=== PATIENT | male | born 1960 | race African-American/Black ===

== ENCOUNTER 2019-08-05 10:09 | Inpatient (IN) | payer OTHER ==
--- NOTE | 2019-08-05 10:23 | PDOC ---
History of Present Illness - General Chief Complaint: Pain, Acute Stated Complaint: rib pain Time Seen by Provider: 08/05/19 10:21 History Source: Patient Exam Limitations: No Limitations - History of Present Illness Initial Comments: 08/05/19 10:22 Saray Comer is a 59M who denies PMH presenting with one week of R-sided rib pain. Reports 11/14 R-sided rib pain that started suddenly, was sleeping and woke up with R-sided pain suddenly, took Tylenol which did not help. Denies any recent trauma or muscle strain, denies chest pain or palpitations or prior cardiac history. Pain worse with inspiration. Denies nausea/vomiting, abdominal pain, pain with meals, dizziness, PITTS, weakness. Denies flank pain or urinary sx. Yesterday evaluated at [facility], found to have isolated CK 709, CTA did not show rib fracture, AAA, or PE, discharged home. Also found to be hypertensive to SBP 180s, given labetalol and hydralazine. Denies PMH HTN. Back today for continuation of same pain and further evaluation, has been trying to reach PMD Kate but unable to contact. PSH chest tube for atelectasis 40 years ago NKDA Denies smoking, social alcohol use, denies drug use. Past History - Medical History Allergies/Adverse Reactions: Allergies Allergy/AdvReac Type Severity Reaction Status Date / Time No Known Allergies Allergy Verified 08/05/19 10:14 COPD: No - Surgical History Appendectomy: No Gastric Stapling: No GI Surgery: No - Immunization History Immunization Up to Date: No - Psycho-Social/Smoking History Smoking History: Never smoked - Substance Abuse Hx (Audit-C & DAST Scrn) How often the patient has a drink containing alcohol: Monthly or less How often the patient has six or more drinks on one occasion: Less than monthly Score: In Men: 4 or > Positive; In Women: 3 or > Positive: 2 Screen Result (Pos requires Nsg. Audit-10AR): Negative In the last yr the pt used illegal drug/Rx for NonMed reason: No Score: Yes response is considered Positive: 0 Screen Result (Positive result requires Nsg. DAST-10): Negative Review of Systems - Review of Systems Able to Perform ROS?: Yes Constitutional: No: Chills, Fever, Loss of Appetite, Weakness, Weight Stable HEENTM: No: Symptoms Reported Respiratory: No: Cough, Shortness of Breath, SOB with Exertion, SOB at Rest Cardiac (ROS): Yes: Chest Pain. No: Edema, Lightheadedness, Palpitations, S yncope ABD/GI: Yes: Poor Appetite, Poor Fluid Intake. No: Nausea, Vomiting : No: Symptoms Reported Musculoskeletal: No: Symptoms Reported Integumentary: No: Bruising, Lesions, Lumps, Pruritus, Rash Neurological: No: Headache, Numbness, Paresthesia, Unsteady Gait Endocrine: No: Symptoms Reported Hematologic/Lymphatic: No: Symptoms Reported All Other Systems: Reviewed and Negative *Physical Exam - Vital Signs Last Vital Signs Temp Pulse Resp BP Pulse Ox 97.6 F 95 H 18 195/117 H 97 08/05/19 10:15 08/05/19 10:15 08/05/19 10:15 08/05/19 10:15 08/05/19 10:15 - Physical Exam General Appearance: Yes: Nourished, Appropriately Dressed. No: Apparent Distress HEENT: positive: EOMI, GREYSON, Normal Voice, Symmetrical, Pharynx Normal, Hearing Grossly Normal. negative: Scleral Icterus (R), Scleral Icterus (L), Pharyngeal Erythema, Tonsillar Exudate, Tonsillar Erythema Neck: positive: Trachea midline, Supple. negative: Tender, Rigid, Lymphadenopathy (R), Lymphadenopathy (L), Tender lateral, Tender midline, Thyromegaly Respiratory/Chest: positive: Chest Tender (R side costal margin), Lungs Clear, Normal Breath Sounds. negative: Respiratory Distress, Accessory Muscle Use, Labored Respiration, Decreased Breath Sounds, Crackles, Rales, Rhonchi, Stridor, Wheezing, Plerual Rub Cardiovascular: positive: Regular Rhythm, Regular Rate Gastrointestinal/Abdominal: positive: Normal Bowel Sounds, Tender (RUQ + Hamlin), Soft. negative: Organomegaly, Pulsatile Mass, Guarding, Rebound Musculoskeletal: positive: Normal Inspection. negative: CVA Tenderness, Decreased Range of Motion, Vertebral Tenderness Extremity: positive: Normal Capillary Refill, Normal Inspection, Normal Range of Motion, Pelvis Stable. negative: Tender, Pedal Edema, Swelling, Calf Tenderness Integumentary: positive: Normal Color, Dry, Warm, Other (R chest and back free of rash/lesions, RUE has discoloration to posterior forearm). negative: Rash Neurologic: positive: combine operator II-XII NML intact, Fully Oriented, Alert, Normal Mood/Affect, Normal Response, Motor Strength 06/09 ED Treatment Course - LABORATORY CBC & Chemistry Diagram: 08/05/19 10:58 08/05/19 10:58 Medical Decision Making - Medical Decision Making 08/05/19 12:01 Patient presents with non-specific R rib pain, already evaluated for PE and AAA via CTA and found to be negative, found to have RUQ pain and +Hamlin sign. VS show HTN. Evaluating broadly for cardiac and MSK pathologies with repeat CXR, CBC, CMP, CP, ECG, giving Ofirmev for pain control, labetalol for HTN, and RUQ US for evaluation GB pathology. ECG shows NSR with LVH, HR 93, MO 156, QRS 94, QTc 445, no SWETHA or ischemic changes. Labs remarkable for: - WBC 15.5 - CK 694 - CP WNL 08/05/19 14:01 RUQ US notable for cholelithiasis without evidence of cholecystitis. Getting CTAP with IV contrast to further evaluate. Pending UA to evaluate for renal pathology. 08/05/19 17:44 UA remarkable. Still in pain, gave Toradol without improvement. Pending CTAP read. 08/05/19 19:02 CTAP shows no acute cholecystitis but has right posterior basilar subpleural opacity. shirring tender on exam. Dr. Love evaluated in ED, if patient still has pain will accept admission. Patient agrees with assessment. 08/05/19 19:35. Discussed case with sheridan Benitez for admission to Med Surg under Dr. Joseph. Discharge - Discharge Information Problems reviewed: Yes Clinical Impression/Diagnosis: Biliary colic Chest pain Qualifiers: Chest pain type: unspecified Qualified Code(s): R07.9 - Chest pain, unspecified Condition: Stable - Follow up/Referral Referrals: Jose Love MD [Primary Care Provider] - - Patient Discharge Instructions Additional Instructions: Today you were evaluated for rib pain. If you have worsening chest pain, abdominal pain, nausea, vomiting, or any other new or concerning symptoms, please return to the emergency room. - Post Discharge Activity
[2019-08-05] MEDS ORDERED: ACETAMINOPHEN 1000 MG/100 ML VIAL (NON FORMULARY) IVPB ONE (10:57)
[2019-08-05] MEDS ORDERED: LABETALOL HCL 5 MG/1 ML (100MG/20 ML VIAL) IVPUSH ONE (11:02)
[2019-08-05] MEDS ORDERED: LABETALOL HCL 5 MG/1 ML (200MG/40ML VIAL) IVPB ONE (11:27)
[2019-08-05] MEDS ORDERED: ACETAMINOPHEN INJECTION 100 ML IVPB ONE (11:27)
[2019-08-05 11:41] LABS: BASO % 0.1 % (0-2.0); HEMATOCRIT 38.6 % (35.4-49); HEMOGLOBIN 12.8 GM/dL (11.7-16.9); MCH 32.6 pg (25.7-33.7); MCHC 33.1 g/dl (32.0-35.9); MEAN CELL VOLUME 98.8 fl (80-96); MEAN PLT VOLUME 9.7 fl (7.5-11.1); MONO % 6.2 % (3.8-10.2); NEUT % 88.7 % (42.8-82.8); PLATELET COUNT 296 K/MM3 (134-434); RBC 3.91 M/mm3 (4.00-5.60); RDW 12.9 % (11.9-15.9); WHITE BLOOD COUNT 15.5 K/mm3 (4.0-10.0)
--- NOTE | 2019-08-05 12:19 | PDOC ---
Attending Attestation - Resident Resident Name: LioseferinoTeresaGerman - ED Attending Attestation I have performed the following: I have examined & evaluated the patient, The case was reviewed & discussed with the resident, I agree w/resident's findings & plan - HPI HPI: 08/05/19 12:15 59y/o M with no sig pmh p/w 2d RUQ/R flank pain. seen at [facility] yesterday, labs/cta chest/ekg all wnl so discharged home with motrin. presents today for persistent sharp pain to RUQ area, associated with nausea and one episode of vomiting today, no diarrhea. worse with deep inspiration, no cp/sob/palp. no f/c. no h/o exertional cp, no h/o postprandial pain. - Physicial Exam PE: 08/05/19 12:17 elevated bp, afebrile, o2 sat wnl alert, seated in stretcher, conversant no jaundice/pallor s1s2 rrr, ctab soft/nd. tender with guarding RUQ, also tender R flank POCUS reveals normal sized GB with polyp v stone no edema, no rash - Medical Decision Making 08/05/19 12:32 59y/o M with 2 days RUQ/flank pain, focal guarding could be consistent with biliary colic/cholecystitis, r/o renal etiology, cardiac/pulm less likely particularly given normal CTA yesterday. elevated BP, ? response to pain, but r/o renal infarct if no other etiology. labs, ua ekg, cxr ruq u/s reassess, likely admission Heart Score/ECG Review #1 ECG reviewed & interpreted by me at: 10:48 General ECG Interpretation: Sinus Rhythm, Normal Rate (93), Normal Intervals (qtc 445, + LVH), No acute ischemic changes (TWI V5V6 could be consistent with strain pattern) Discharge - Discharge Information Problems reviewed: Yes Clinical Impression/Diagnosis: Biliary colic Chest pain Qualifiers: Chest pain type: unspecified Qualified Code(s): R07.9 - Chest pain, unspecified Condition: Stable Disposition: VNS/HOME HEALTH CARE - Follow up/Referral - Patient Discharge Instructions - Post Discharge Activity
--- NOTE | 2019-08-05 12:27 | EKG ---
Test Reason : Blood Pressure : / mmHG Vent. Rate : 093 BPM Atrial Rate : 093 BPM P-R Int : 156 ms QRS Dur : 094 ms QT Int : 358 ms P-R-T Axes : 039 -23 239 degrees QTc Int : 445 ms POOR DATA QUALITY, INTERPRETATION MAY BE ADVERSELY AFFECTED NORMAL SINUS RHYTHM POSSIBLE LEFT ATRIAL ENLARGEMENT LEFT VENTRICULAR HYPERTROPHY ABNORMAL ECG NO PREVIOUS ECGS AVAILABLE Confirmed by Jorden Galvez MD ([id number]) on 08/05/2019 12:26:52 PM Referred By: Confirmed By:Jorden Galvez MD
[2019-08-05 12:29] LABS: ALBUMIN 4.2 g/dl (3.4-5.0); ALK PHOS 67 U/L (45-117); ANION GAP 7 MMOL/L (8-16); BILIRUBIN,TOTAL 0.6 mg/dL (0.2-1); CALCIUM 9.6 mg/dL (8.5-10.1); CHLORIDE 101 mmol/L (98-107); CO2 29 mmol/L (21-32); CREATININE 1.1 mg/dL (0.55-1.3); GLUCOSE,RANDOM 120 mg/dL (74-106); POTASSIUM 3.8 mmol/L (3.5-5.1); SGOT/AST 33 U/L (15-37); SODIUM 137 mmol/L (136-145); TOT PROT 8.8 g/dl (6.4-8.2)
[2019-08-05 12:32] LABS: SGPT/ALT 29 U/L (13-61)
[2019-08-05 13:46] LABS: LIPASE 85 U/L (73-393)
[2019-08-05 15:11] LABS: URINE APPEARANCE TURBID; URINE BILIRUBIN NEGATIVE (NEGATIVE); URINE COLOR DK YELLOW; URINE GLUCOSE (UA) NEGATIVE (NEGATIVE); URINE KETONE NEGATIVE (NEGATIVE)
[2019-08-05 15:12] LABS: PH,URINE 5.5 (5.0-8.0); URINE LEUK ESTERASE NEGATIVE (NEGATIVE); URINE NITRITE NEGATIVE (NEGATIVE); URINE PROTEIN TRACE (NEGATIVE)
[2019-08-05 15:13] LABS: EPI CELLS 9.5 /uL (0-25.1); HYALINE CASTS 2.18 /uL (0-3.1); URINE BACTERIA 8.6 /uL (0-1359); URINE RBC 3.4 /uL (0-23.9); URINE WBC 3.8 /uL (0-25.8)
[2019-08-05] MEDS ORDERED: SODIUM CHLORIDE 0.9% 500 ML INFUS.BAG IV ONE (16:48)
[2019-08-05] MEDS ORDERED: KETOROLAC TROMETHAMINE 30 MG/1 ML VIAL IVPUSH ONE (16:48)
[2019-08-05] MEDS ORDERED: KETOROLAC TROMETHAMINE 30 MG/1 ML VIAL ONE (16:59)
[2019-08-05] MEDS ORDERED: SODIUM CHLORIDE 1,000 ML IV SCH (19:30)
--- NOTE | 2019-08-05 19:41 | HP ---
CHIEF COMPLAINT:right upper quadrant pain PCP:Dr. Metcalf HISTORY OF PRESENT ILLNESS: 59 year old male with no past medical or cardiac hostory history who presented with right sided rib pain. He reported 10/10 right sided rib pain that started yesterday suddenly, he states he was sleeping and woke up with mid right sided pain with radiation to his back, took Tylenol which did not relieve his pain. He denied any recent trauma or muscle strain, denied chest pain or palpitations or prior cardiac history. Pain was described as worse with inspiration and on positional changes. He denied nausea, abdominal pain with meals, dizziness, headache, weakness, or urinary symptoms. Yesterday he was evaluated at [facility] ER , found to have isolated CK 709, CTA did not show rib fracture, AAA, or PE, and he was discharged home. He was also found to be found to be hypertensive with SBP 180s, was given IV labetalol and hydralazine. He came to [facility] ER today for continuation of same pain and further evaluation. ER workup notable for: 1.CT scan of abdomen and pelvis with contrast demonstrating cholelithiasis and no evidence of acute cholecystitis or acute appendicitis, no aortic aneurysm or other acute findings, no lymphadenopathy, a small amount of free intraperitoneal fluid seen in rectovesical space, right posterior basilar subpleural opacity present. 2. Abdomen US- mild hepatomegaly and cholelithiasis. 3. CXR with moderate cardiomegaly. 4. Lab findings notable for WBC 15.5 and creatine kinase 654, ast 33, alt 29, total bilirubin 0.6 and creatinine 1.1. 5. UA is negative. In the ER he was hypertensive with SBP in the 190's ? pain response. He receive d IV labatalol 20mg bolus once with some improvement in blood pressure. He was also given IV toradol 30 mg once with some relief in pain and a bolus of IVF. Recent Travel: no PAST MEDICAL HISTORY: none PAST SURGICAL HISTORY: chest tube for atelectasis 40 years ago Social History: Smoking:no Alcohol:no Drugs: no Family History: + diabetes mellitus in family Allergies No Known Allergies Allergy (Verified 08/05/19 10:14) HOME MEDICATIONS: none REVIEW OF SYSTEMS CONSTITUTIONAL: Absent: fever, chills, diaphoresis, generalized weakness, malaise, loss of juan etite, weight change HEENT: Absent: rhinorrhea, nasal congestion, throat pain, throat swelling, difficulty swallowing, mouth swelling, ear pain, eye pain, visual changes CARDIOVASCULAR: Absent: chest pain, syncope, palpitations, irregular heart rate, lightheadedness, peripheral edema RESPIRATORY: Absent: cough, shortness of breath, dyspnea with exertion, orthopnea, wheezing, stridor, hemoptysis GASTROINTESTINAL: Absent: right sided pain to his mid region with radiation to back , abdominal distension, nausea, vomiting, diarrhea, constipation, melena, hematochezia, last BM 08/03 GENITOURINARY: Absent: dysuria, frequency, urgency, hesitancy, hematuria, flank pain, genital pain MUSCULOSKELETAL: Absent: myalgia, arthralgia, joint swelling, back pain, neck pain SKIN: Absent: rash, itching, pallor HEMATOLOGIC/IMMUNOLOGIC: Absent: easy bleeding, easy bruising, lymphadenopathy, frequent infections ENDOCRINE: Absent: unexplained weight gain, unexplained weight loss, heat intolerance, cold intolerance NEUROLOGIC: Absent: headache, focal weakness or paresthesias, dizziness, unsteady gait, seizure, mental status changes, bladder or bowel incontinence PSYCHIATRIC: Absent: anxiety, depression, suicidal or homicidal ideation, hallucinations. PHYSICAL EXAMINATION Vital Signs - 24 hr 08/05/19 08/05/19 08/05/19 10:15 11:05 11:17 Temperature 97.6 F Pulse Rate 95 H Pulse Rate [ 96 H Left Radial] Respiratory 18 18 Rate Blood Pressure 195/117 H Blood Pressure 171/107 H [Right Arm] O2 Sat by Pulse 97 96 96 Oximetry (%) 08/05/19 08/05/19 08/05/19 11:32 11:46 13:21 Temperature Pulse Rate Pulse Rate [ 90 88 Left Radial] Respiratory 19 Rate Blood Pressure Blood Pressure 168/97 156/94 152/84 [Right Arm] O2 Sat by Pulse 97 Oximetry (%) 08/05/19 17:33 Temperature Pulse Rate Pulse Rate [ 98 H Left Radial] Respiratory 18 Rate Blood Pressure Blood Pressure 168/99 [Right Arm] O2 Sat by Pulse 98 Oximetry (%) Physical Examination General no acute distress Vital signs reviewed afebrile blood pressure noted Lungs CTA nonlabored breathing effort no rales no wheezing Heart s1s2 rate regular Abdomen no acute abdomen tender to palpation to mid right side with radiation to back Extremities warm to touch no pitting no cyanosis Skin nail beds and lips pin Mood calm cooperative Laboratory Results - last 24 hr 08/05/19 08/05/19 08/05/19 10:58 10:58 14:40 WBC 15.5 H RBC 3.91 L Hgb 12.8 Hct 38.6 MCV 98.8 H MCH 32.6 MCHC 33.1 RDW 12.9 Plt Count 296 MPV 9.7 Absolute Neuts (auto) 13.7 H Neutrophils % 88.7 H Lymphocytes % 5.0 L Monocytes % 6.2 Eosinophils % 0.0 Basophils % 0.1 Nucleated RBC % 0 Sodium 137 Potassium 3.8 Chloride 101 Carbon Dioxide 29 Anion Gap 7 L BUN 13.0 Creatinine 1.1 Est GFR (CKD-EPI)AfAm 84.12 Est GFR (CKD-EPI)NonAf 72.58 Random Glucose 120 H Calcium 9.6 Total Bilirubin 0.6 AST 33 ALT 29 Alkaline Phosphatase 67 Creatine Kinase 674 H Creatine Kinase Index 0.3 CK-MB (CK-2) 2.1 Troponin I < 0.02 Total Protein 8.8 H Albumin 4.2 Lipase 85 Urine Color Dk yellow Urine Appearance Turbid Urine pH 5.5 Ur Specific [place] 1.070 H Urine Protein Trace Urine Glucose (UA) Negative Urine Ketones Negative Urine Blood Negative Urine Nitrite Negative Urine Bilirubin Negative Urine Urobilinogen 1.0 Ur Leukocyte Esterase Negative Urine WBC (Auto) 3.8 Urine RBC (Auto) 3.4 Urine Casts (Auto) 2.18 U Epithel Cells (Auto) 9.5 Urine Bacteria (Auto) 8.6 ASSESSMENT/PLAN: 59 year old male with past medical or cardiac history who present with persistent right sided pain with radiation to back. CT CT scan of abdomen and pelvis with contrast demonstrated cholelithiasis and no evidence of acute cholecystitis, no aortic aneurysm or other acute findings, right posterior basilar subpleural opacity present.Abdomen US showed mild hepatomegaly and cholelithiasis. CXR with moderate cardiomegaly. He was found to have leukocytosis and was hypertensive in the ER requiring IV labatalol. Patient is being admitted for further medical evaluation and pain control. 1. Right Upper to Mid Quadrant Pain with Radiation to Back(?etiology) currently febrile(101), +leukocytosis and elevated neutrophils, amlylase and lipase normal -NPO -c/w with pain control with toradol 15mg IV prn /Ofirmev IV as needed -GI consulted- Dr. Briggs to exclude GI etiology -Infectious Diseases consulted(Dr. Prado) for leukocytosis(febrile, WBC 15.5, neutrophils 88.7),gave one dose of IV Ceftriaxone 1 gm and azithromycin 500mg. -Pulmonary consulted- (Dr. Naranjo) to evaluate right posterior basilar subple ural opacity/?infiltrate -lactic acid pending -blood cultures ordered 2. Hypertension uncontrolled secondary ? pain response CXR has moderate cardiomegaly EKG -normal sinus rhythm, left ventricular hypertrophy, possible left atrial enlargement -echocardiogram ordered -will add lisinopril 5 mg for blood pressure control 3. R/O COVID(low suspicion) + leukocytosis and reported symptoms of SOB,no hypoxia -follow up on COVID tesr (taken 08/04) -maintain strict droplet/contact isolation precautions -maintain O2 saturation >90% FEN no further IVF as patient is hypertensive, received 1 Liter fluid bolus monitor BMP daily and replete electrolytes as needed NPO DVT Prophylacis SCD's Visit type - Emergency Visit Emergency Visit: Yes ED Registration Date: 08/05/19 Care time: The patient presented to the Emergency Department on the above date and was hospitalized for further evaluation of their emergent condition. - New Patient This patient is new to me today: Yes Date on this admission: 08/05/19 - Critical Care Critical Care patient: No
[2019-08-05 20:27] LABS: AMYLASE 91 U/L (25-115)
[2019-08-05] MEDS ORDERED: PIPERACILLIN/TAZOB 3.375 GM 3.375 GM in DEXTROSE 5%-WATER - 50 ML IVPB SCH ×2 (21:15→21:30)
[2019-08-05] MEDS ORDERED: AZITHROMYCIN IVPB 500 MG/250 ML BAG IVPB ONE ×2 (21:26→21:49)
[2019-08-05] MEDS ORDERED: CEFTRIAXONE 1 GM in DEXTROSE 5%-WATER - 50 ML IVPB ONE (21:30)
[2019-08-05] MEDS ORDERED: LISINOPRIL 5 MG TABLET (FP) ONE (21:49)
[2019-08-05] MEDS ORDERED: CEFTRIAXONE 1 GM/50 ML BAG ONE (21:49)
[2019-08-05] MEDS: LISINOPRIL 5 MG TABLET (FP) PO SCH (21:58)
[2019-08-05] MEDS ORDERED: ACETAMINOPHEN 325 MG TABLET (FP) ONE ×2 (23:16→23:20)
[2019-08-05] MEDS: ACETAMINOPHEN 325 MG TABLET (FP) PO PRN (23:39)
[2019-08-06 00:02] LABS: AMYLASE 62 U/L (25-115); LIPASE 73 U/L (73-393)
[2019-08-06] MEDS: KETOROLAC TROMETHAMINE 15 MG/ML VIAL IVPUSH PRN ×2 (02:15→08:02)
[2019-08-06] MEDS: ACETAMINOPHEN 325 MG TABLET (FP) PO PRN (05:45)
[2019-08-06] MEDS ORDERED: PT OWN MED DRAWER 7, Y5N ONE (09:56)
[2019-08-06] MEDS: LISINOPRIL 5 MG TABLET (FP) PO SCH (10:04)
--- NOTE | 2019-08-06 10:52 | CON.GI ---
Consult - History of Present Illness History of Present Illness: The patient is a 59 yo male who presented to the ER for persistent pain to his right abd/chest. He states that he went to [facility] on Sunday and had a CT scan of his chest and was not told of any specific diagnosis. He was not treated with any medications as an outpt. Sunday morning he had some vomiting. The pain his upper abd/right side that radiates to his back began Sunday morning after eating breakfast. Currently his nausea is gone and feels hungry but his pain is at a level of 7 after getting toradol 2 hours ago. His hospital course is significant for a fever to 101. He denies any h/o hepatitis, recurrent abd pain. No cough/SOB - History Source History Provided By: Patient Limitations to Obtaining History: No Limitations - Past Medical History Cardio/Vascular: No: Deep Vein Thrombosis, HTN Pulmonary: No: Asthma Gastrointestinal: Yes: Other (no hisotyr of diverticular disease). No: C onstipation, Gastritis, GERD, GI Bleed, Peptic Ulcer Disease (has never had colonoscopy, denies any rectal bleeding) Renal/: No: Hematuria, Renal Calculi Heme/Onc: No: Bleeding Disorder Infectious Disease: Yes: Other (denies history of hepatitis). No: HIV - Past Surgical History Additional Surgical History: h/o of left pneumothorax with left thoracotomy for repair of pneumothorax-20 years ago - Alcohol/Substance Use Hx Alcohol Use: Yes (few drinks socially on the weekends) - Smoking History Smoking history: Never smoked Have you smoked in the past 12 months: No <Naomi Ferro - Last Filed: 08/06/19 11:36> Home Medications <Naomi Ferro - Last Filed: 08/06/19 11:36> <Gracia Cordero - Last Filed: 08/06/19 16:36> - Allergies Allergies/Adverse Reactions: Allergies Allergy/AdvReac Type Severity Reaction Status Date / Time No Known Allergies Allergy Verified 08/06/19 09:18 Family Medical History Family Hx Gastrointestinal Disorder: Mother (no h/o colon cancer, passed from COPD), Father ( in his sleep,thought to be from COVID disease), Brother (passed from lung cancer) <Naomi Ferro - Last Filed: 08/06/19 11:36> Physical Exam-GI Vital Signs: Vital Signs Temperature 99.0 F 08/06/19 09:11 Pulse Rate 99 H 08/06/19 09:11 Respiratory Rate 20 08/06/19 09:11 Blood Pressure 153/98 08/06/19 09:11 O2 Sat by Pulse Oximetry (%) 95 08/06/19 09:00 Constitutional: Yes: Well Nourished, Calm Eyes: Yes: Conjunctiva Clear. No: Sclera Icterus HENT: Yes: Atraumatic, Normocephalic Cardiovascular: Yes: WNL, Regular Rate and Rhythm Respiratory: Yes: WNL, Regular, CTA Bilaterally ...Palpate: Yes: Guarding (RUQ, no reboud. Positive murphys sign). No: Tenderness, Rebound Extremities: No: Calf Tenderness Edema: No Neurological: Yes: WNL, Alert, Oriented ...Motor Strength: WNL, LUE, LLE, RUE, RLE Psychiatric: Yes: WNL, Alert, Oriented Labs: CBC, BMP 08/05/19 10:58 08/05/19 10:58 Laboratory Tests 08/05/19 08/05/19 08/05/19 01:45 10:58 20:28 Lactic Acid 1.0 Total Bilirubin 0.6 AST 33 Alkaline Phosphatase 67 Creatine Kinase 674 H Creatine Kinase Index 0.3 Troponin I < 0.02 Albumin 4.2 Total Amylase 91 Lipase 85 COVID-19 (KATYA) Pending 08/05/19 23:10 Lactic Acid Total Bilirubin AST Alkaline Phosphatase Creatine Kinase Creatine Kinase Index Troponin I Albumin Total Amylase 62 Lipase 73 COVID-19 (KATYA) <Naomi Ferro - Last Filed: 08/06/19 11:36> Vital Signs: Vital Signs Temperature 99.0 F 08/06/19 09:11 Pulse Rate 99 H 08/06/19 09:11 Respiratory Rate 08/06/19 09:11 Blood Pressure 153/98 08/06/19 09:11 O2 Sat by Pulse Oximetry (%) 95 08/06/19 09:00 Labs: CBC, [facility] 08/05/19 10:58 08/06/19 11:50 <Gracia Cordero - Last Filed: 08/06/19 16:36> Imaging - Results Cat Scan: Report Reviewed (cholelithiasis, hepatic steatosis. No biliary duct dilatation.) Ultrasound: Other (cholelilthiasis, without evidence of pericholecystic fluid. hyperechoic liver-difuse fatty liver. No intra/extra heptic duct dilatation) <Naomi Ferro - Last Filed: 08/06/19 11:36> Problem List - Problems (1) Biliary colic Assessment/Plan: Pt with evidence of biliary disease/gall stones. No evidence of acute cholecystitis on imaging, although clinically he is tender in the RUQ with fevers and and elevation in his WBC. His LFTS on admission were within normal limits. Repeat labs this am were ordered but the patient refused blood draw. I spoke with him and advised him that the values should be repeat today. In addition, I spoke with the medical team regarding his care. At this time it is recommeded to continue Npo. Begin IV hydration and continue IV abx. A HIDA scan should be obtained to r/o acute jake and a surgical consult as well. On CT scan, a right base atlectasis possible infiltrate is seen and could also be a source of fever/pain. COVID pending D/w Dr. Cordero Problems reviewed: Yes Code(s): K80.50 - CALCULUS OF BILE DUCT W/O CHOLANGITIS OR CHOLECYST W/O OBST <Naoim Ferro - Last Filed: 08/06/19 11:36> Assessment/Plan PT WAS SEEN AND EXAMINED AGREE WITH ASSESSMENT AND PLAN OUTLINED ABOVE. CLEAR LIQUID DIET AWAIT HIDA SCAN WILL ADD FLAGYL TO THE ABX REGIMEN - IF HIDA NEGATIVE CAN DC THE FLAGYL. <Gracia Cordero - Last Filed: 08/06/19 16:36>
[2019-08-06] MEDS: CEFTRIAXONE 1 GM in DEXTROSE 5%-WATER - 50 ML IVPB SCH (10:53)
--- NOTE | 2019-08-06 11:23 | PN ---
Progress Note (short form) - Note Progress Note: ID consult dictated early RLL infiltrate vs cholycystitis agree with HIDA scan continue rocephin/zith f/u cultures blood cultures legionella urinary antigen covid pcr pending rhabdomyolysis htn d/w GI and PMD d/w pulmonary Problem List - Problems (1) Pneumonia Code(s): J18.9 - PNEUMONIA, UNSPECIFIED ORGANISM (2) Abdominal pain, RUQ Code(s): R10.11 - RIGHT UPPER QUADRANT PAIN (3) HTN (hypertension) Code(s): I10 - ESSENTIAL (PRIMARY) HYPERTENSION (4) Rhabdomyolysis Code(s): M62.82 - RHABDOMYOLYSIS
[2019-08-06] MEDS: AZITHROMYCIN IVPB 250 MG in DEXTROSE 5%-WATER - 250 ML IVPB SCH (11:24)
[2019-08-06] MEDS ORDERED: LACTATED RINGERS SOLUTION 1,000 ML/1,000 ML INFUS.BAG IV SCH (11:30)
--- NOTE | 2019-08-06 11:30 | PN ---
Progress Note, Physician Chief Complaint: RUQ abdominal pain Nausea+ vomiting History of Present Illness: NAD Pain 07/15 On no medications at home Symptoms started on 08/04/19 around noon with RUQ abd pain that was sharp stabbing radiating to right back with no vomiting. Pt went to [facility], Has CXR, CT abd+ EKG- no known results, pt was discharged. Pt continued to have RUQ pain, had Vomiting x 1, when daughter initiated EMS and pt was brought in to the hospital. Pt denies any pain associated withm eals, denies any N/V/D currently. c/O mild SOB r/t pain. CTAP reviewed, RLL opacities, possible developing pneumonia or atelectasis 2/2 to shallow breaths. Feberile overnight, denies any cough or fever at home. - Current Medication List Current Medications: Active Medications Acetaminophen (Tylenol -) 650 mg PO Q6H PRN PRN Reason: FEVER Last Admin: 08/06/19 05:45 Dose: 650 mg Documented by: Azithromycin 250 mg/ Dextrose 250 mls @ 250 mls/hr IVPB DAILY [facility] Last Admin: 08/06/19 11:24 Dose: 250 mls/hr Documented by: Ceftriaxone Sodium 1 gm/ (Dextrose) 50 mls @ 100 mls/hr IVPB DAILY [facility]; Protocol Last Admin: 08/06/19 10:53 Dose: 100 mls/hr Documented by: Ketorolac Tromethamine (Toradol Injection -) 15 mg IVPUSH Q6H PRN PRN Reason: PAIN LEVEL 7 - 10 Stop: 08/10/19 19:57 Last Admin: 08/06/19 08:02 Dose: 15 mg Documented by: Lisinopril (Prinivil) 10 mg PO DAILY [facility] - Objective Vital Signs: Vital Signs Temperature 99.0 F 08/06/19 09:11 Pulse Rate 99 H 08/06/19 09:11 Respiratory Rate 20 08/06/19 09:11 Blood Pressure 153/98 08/06/19 09:11 O2 Sat by Pulse Oximetry (%) 95 08/06/19 09:00 Constitutional: Yes: Well Nourished, No Distress, Calm Cardiovascular: Yes: Regular Rate and Rhythm Respiratory: Yes: Regular, Rales (RLL) Gastrointestinal: Yes: Normal Bowel Sounds, Soft Genitourinary: Yes: WNL Musculoskeletal: Yes: WNL Extremities: Yes: WNL Edema: No Peripheral Pulses WNL: Yes Neurological: Yes: Alert, Oriented Psychiatric: Yes: Alert, Oriented Labs: CBC, BMP 08/05/19 10:58 08/05/19 10:58 Problem List - Problems (1) Abdominal pain, RUQ Assessment/Plan: -GI consult -HIDA scan to r/o biliary colic -Toradol 30 mg IVP Q6H PRN -Repeat labs today -NPO -Gentle IVF Problems reviewed: Yes Code(s): R10.11 - RIGHT UPPER QUADRANT PAIN (2) Pneumonia Assessment/Plan: -Pulmonary consult -IV Rocephin + Azithro -ID consult -Acetaminophen for fever Problems reviewed: Yes Code(s): J18.9 - PNEUMONIA, UNSPECIFIED ORGANISM (3) HTN (hypertension) Assessment/Plan: -Lisinopril 10 mg po daily -Monitor trend Problems reviewed: Yes Code(s): I10 - ESSENTIAL (PRIMARY) HYPERTENSION Assessment/Plan See problem list
[2019-08-06] MEDS ORDERED: ACETAMINOPHEN 500 MG TABLET (FP) PO PRN (11:31)
[2019-08-06] MEDS ORDERED: LISINOPRIL 5 MG TABLET (FP) PO ONE (11:31)
--- NOTE | 2019-08-06 11:47 | CON.PULM ---
Consult Consult Specialty:: PULMONARY Referred by:: Dr Love Reason for Consultation:: abnormal CT - History of Present Illness Chief Complaint: RUQ/back pain History of Present Illness: 59yo male with h/o left spontaneous pneumothorax s/p chest tube at age 22 who was admitted with right sided rib and back pain. Pain described as sharp, worse with deep inspiration. No cough or wheezing. Denies shortness of breath. Lives with daughter, no sick contacts but works at [employer]. Has been using face masks. Febrile to [address] A/P showing cholelithiasis without evidence of cholecystitis and RLL infiltrate vs atelectasis. COVID19 serology pending. - History Source History Provided By: Patient, Medical Record Limitations to Obtaining History: No Limitations - Past Medical History Gastrointestinal: Yes: Other (no hisotyr of diverticular disease) Infectious Disease: Yes: Other (denies history of hepatitis) - Past Surgical History Additional Surgical History: h/o of left pneumothorax with left thoracotomy for repair of pneumothorax-20 years ago - Alcohol/Substance Use Hx Alcohol Use: Yes (few drinks socially on the weekends) - Smoking History Smoking history: Never smoked Have you smoked in the past 12 months: No Home Medications - Allergies Allergies/Adverse Reactions: Allergies Allergy/AdvReac Type Severity Reaction Status Date / Time No Known Allergies Allergy Verified 08/06/19 09:18 Review of Systems - Review of Systems Constitutional: reports: Fever. denies: Weakness Eyes: denies: Recent Change in Vision HENT: denies: Nasal Congestion, Throat Pain Neck: denies: Stiffness, Tenderness Cardiovascular: denies: Chest Pain, Shortness of Breath Respiratory: denies: Cough, Wheezing Gastrointestinal: reports: Nausea. denies: Abdominal Pain Genitourinary: denies: Dysuria, Hematuria Musculoskeletal: reports: Back Pain Neurological: denies: Dizziness, Headache Endocrine: denies: Unexplained Weight Loss Physical Exam Vital Sings: Vital Signs Temperature 99.0 F 08/06/19 09:11 Pulse Rate 99 H 08/06/19 09:11 Respiratory Rate 08/06/19 09:11 Blood Pressure 153/98 08/06/19 09:11 O2 Sat by Pulse Oximetry (%) 95 08/06/19 09:00 Constitutional: Yes: Calm Eyes: Yes: Conjunctiva Clear, EOM Intact HENT: Yes: Atraumatic, Normocephalic Neck: Yes: Supple, Trachea Midline Cardiovascular: Yes: Regular Rate and Rhythm Respiratory: Yes: Rales (bibasilar) ...Clubbing: No Gastrointestinal: Yes: Normal Bowel Sounds, Soft. No: Tenderness Edema: No Neurological: Yes: Alert, Oriented Labs: CBC, BMP 08/05/19 10:58 08/05/19 10:58 Imaging - Results Chest X-ray: Report Reviewed, Image Reviewed (RLL infiltrate vs atelectasis) Cat Scan: Report Reviewed, Image Reviewed Assessment/Plan Hypertensive Urgency Pneumonia Pleurisy r/o COVID19 Cholelithiasis - pain control - IV antibiotics - f/u cultures, serologies - BP control - repeat CXR in AM - DVT prophylaxis Thank you for this consult Justin Garza MD
[2019-08-06] MEDS: ACETAMINOPHEN 500 MG TABLET (FP) PO PRN ×2 (11:59→18:53)
--- NOTE | 2019-08-06 12:25 | CONS ---
DATE OF CONSULTATION: DATE OF DICTATION: 08/06/2019 CHIEF COMPLAINT/HISTORY OF PRESENT ILLNESS: This is a 59-year-old man who has had 3 days of right-sided pleuritic chest pain, started acutely, and he tried taking Tylenol without any help. He went to [facility], was found to have and elevated CPK of 709. He apparently had a CTA which did not show rib fracture or a PE or aneurysm. This is per the emergency room notes. He was discharged home. He was noted to be hypertensive in the ER. He continued to have the pain, came to the ER. He had a CAT scan of his abdomen and pelvis. He was noted to have cholelithiasis without CT evidence of acute cholecystitis, a small amount of intraperitoneal fluid, and he had increased right posterior infiltrate was noted. After admission, he had fever to 101 without chills last night. He was started on ceftriaxone and Zithromax. Asked to see him for further evaluation. He has had no nausea or vomiting. The pain has not been related to any meals. He still has pain that radiates from his right upper quadrant around to his right back. PAST MEDICAL HISTORY: Unremarkable, though he is noted to have hypertension both at [facility] and here now. He has a history of zoster as well about 5 years ago of his right upper extremity. PAST SURGICAL HISTORY: He had a pneumothorax and had a chest tube many years ago here at [facility]. FAMILY HISTORY: Notable that mother with coronary artery disease. His father recently, was at a penitentiary with [facility]. He lost a daughter to an accident, and he has lost his brother to lung cancer. There is family history of diabetes as well. SOCIAL HISTORY: Former smoker, just rare social, stopped several years ago. He drinks alcohol, cognac, on weekends. There is no history of recreational drug use. He has not been sexually active for a year. He lives with his 16-year-old daughter, and he works at [employer], and he has been at work now for the last 6 weeks and been wearing masks. ALLERGIES: He has no known drug allergies. MEDICATIONS: He takes no medications. REVIEW OF SYSTEMS: He has had no nausea, vomiting, or diarrhea. He notes he has discomfort on his right ribs. He has had no dysuria of other GI symptoms. PHYSICAL EXAMINATION: Vital Signs: His temperature is 99. T-max is 101. Pulse is 99. Blood pressure is 153/98. Respiratory rate is 20, saturating 95%. HEENT: He is normocephalic. His eyes are anicteric. Lungs: He has crackles at his right base. Heart: Regular rate and rhythm. Abdomen: Soft. He has right upper quadrant discomfort that radiates around his right rib cage. Otherwise, his abdominal exam is normal. Extremities: Without edema. He has well-healed scarring of his right upper extremity from his prior zoster. LABORATORY: His labs are notable for a white count of 15.5, hemoglobin 12.8. Platelets are 296. BUN is 13 and creatinine 1. Glucose is 120. Lactic acid is 1. LFTs are normal with a CK of 674. Urinalysis is negative, and his COVID-19 PCR and blood cultures are pending. SUMMARY: This is a 59-year-old man, no significant past medical history, who I suspect has early right lower lobe pneumonia which is giving him severe pain, versus cholecystitis, which I think is probably less likely. Would agree with HIDA scan, continue with ceftriaxone and Zithromax. Follow up his cultures. Blood cultures have been sent. Would obtain a urine Legionella antigen and COVID PCR. He has not had any outpatient antibiotics or any admissions to the hospital, so treatment for community-acquired pneumonia appears appropriate at this time. Case was discussed with GI and PMD as well as Pulmonary. QUINTIN GARRETT M.D. [id number]
[2019-08-06 13:30] LABS: ALBUMIN 3.2 g/dl (3.4-5.0); BILIRUBIN,TOTAL 0.6 mg/dL (0.2-1); CALCIUM 8.9 mg/dL (8.5-10.1); POTASSIUM 3.6 mmol/L (3.5-5.1); TOT PROT 7.4 g/dl (6.4-8.2)
[2019-08-06 13:31] LABS: CREATININE 1.1 mg/dL (0.55-1.3)
[2019-08-06] MEDS: KETOROLAC TROMETHAMINE 30 MG/1 ML VIAL IVPUSH PRN ×2 (16:11→21:27)
[2019-08-06 17:59] LABS: BASO % 0.4 % (0-2.0); EOS % 0.1 % (0-4.5); HEMATOCRIT 34.3 % (35.4-49); HEMOGLOBIN 11.2 GM/dL (11.7-16.9); LYMPH % 8.3 % (8-40); MCH 33.1 pg (25.7-33.7); MCHC 32.6 g/dl (32.0-35.9); MEAN CELL VOLUME 101.6 fl (80-96); MEAN PLT VOLUME 9.7 fl (7.5-11.1); MONO % 8.6 % (3.8-10.2); NEUT % 82.6 % (42.8-82.8); PLATELET COUNT 236 K/MM3 (134-434); RBC 3.38 M/mm3 (4.00-5.60); RDW 13.3 % (11.9-15.9); WHITE BLOOD COUNT 13.5 K/mm3 (4.0-10.0)
[2019-08-06] MEDS: VANCOMYCIN 1,250 MG in DEXTROSE 5%-WATER - 250 ML IVPB SCH (18:59)
[2019-08-07] MEDS: KETOROLAC TROMETHAMINE 30 MG/1 ML VIAL IVPUSH PRN ×3 (03:50→22:36)
[2019-08-07] MEDS: VANCOMYCIN 1,250 MG in DEXTROSE 5%-WATER - 250 ML IVPB SCH ×2 (05:55→17:40)
[2019-08-07] MEDS: ACETAMINOPHEN 500 MG TABLET (FP) PO PRN ×3 (07:34→20:10)
[2019-08-07 08:08] LABS: BASO % 0.2 % (0-2.0); EOS % 0.2 % (0-4.5); HEMATOCRIT 32.7 % (35.4-49); HEMOGLOBIN 10.8 GM/dL (11.7-16.9); MCH 33.2 pg (25.7-33.7); MCHC 33.1 g/dl (32.0-35.9); MEAN CELL VOLUME 100.3 fl (80-96); MEAN PLT VOLUME 9.3 fl (7.5-11.1); MONO % 11.3 % (3.8-10.2); NEUT % 76.3 % (42.8-82.8); PLATELET COUNT 212 K/MM3 (134-434); RBC 3.26 M/mm3 (4.00-5.60); RDW 12.8 % (11.9-15.9); WHITE BLOOD COUNT 9.2 K/mm3 (4.0-10.0)
[2019-08-07 08:26] LABS: ALBUMIN 2.9 g/dl (3.4-5.0); BILIRUBIN,TOTAL 0.6 mg/dL (0.2-1); CALCIUM 8.5 mg/dL (8.5-10.1); CREATININE 1.2 mg/dL (0.55-1.3); POTASSIUM 3.4 mmol/L (3.5-5.1); TOT PROT 6.8 g/dl (6.4-8.2)
[2019-08-07] MEDS ORDERED: DEXTROSE 5%-WATER - 50 ML IVPB ONE (10:10)
[2019-08-07] MEDS ORDERED: cefTRIAXone SODIUM 1 GM VIAL ONE (10:10)
[2019-08-07] MEDS: LISINOPRIL 10 MG TABLET (FP) PO SCH (10:15)
--- NOTE | 2019-08-07 10:34 | PN ---
Progress Note (short form) - Note Progress Note: PULMONARY Pleuritic pain improving. Fevers down. CXR this AM confirming developing RLL infiltrate. Blood cultures growing gram positive cocci in clusters. Vital Signs Period Temp Pulse Resp BP Sys/Pinedo Pulse Ox Last 24 Hr 98.3 F-99.9 F 86-113 18-20 135-140/71-85 94-95 Intake & Output 08/04/19 08/05/19 08/06/19 08/07/19 23:59 23:59 23:59 23:59 Intake Total 1710 700 Balance 1710 700 Weight 99.79 kg 86.092 kg Gen: NAD at rest Heart: RRR Lung: right base rales Abd: soft, nontender Ext: no edema CBC, BMP 08/07/19 06:49 08/07/19 06:49 Active Medications Acetaminophen (Tylenol -) 1,000 mg PO Q6H PRN PRN Reason: PAIN LEVEL 1-5 Last Admin: 08/07/19 07:34 Dose: 1,000 mg Documented by: Azithromycin 250 mg/ Dextrose 250 mls @ 250 mls/hr IVPB DAILY [facility] Last Admin: 08/06/19 11:24 Dose: 250 mls/hr Documented by: Ceftriaxone Sodium 1 gm/ (Dextrose) 50 mls @ 100 mls/hr IVPB DAILY [facility]; Prot ocol Last Admin: 08/06/19 10:53 Dose: 100 mls/hr Documented by: Lactated Ringer's (Lactated Ringers Solution) 1,000 ml in 1,000 mls @ 50 mls/hr IV ASDIR [facility] Last Admin: 08/06/19 12:26 Dose: 50 mls/hr Documented by: Vancomycin HCl 1,250 mg/ (Dextrose) 250 mls @ 166.667 mls/hr IVPB BID@0500,1700 [facility]; Protocol Last Admin: 08/07/19 05:55 Dose: 166.667 mls/hr Documented by: Metronidazole (Flagyl 500mg Premixed Ivpb -) 500 mg in 100 mls @ 100 mls/hr IVPB Q8H-IV [facility] Last Admin: 08/07/19 10:19 Dose: 100 mls/hr Documented by: Ketorolac Tromethamine (Toradol Injection -) 30 mg IVPUSH Q6H PRN PRN Reason: PAIN LEVEL 6-10 Stop: 08/11/19 11:31 Last Admin: 08/07/19 10:15 Dose: 30 mg Documented by: Lisinopril (Prinivil) 10 mg PO DAILY [facility] Last Admin: 08/07/19 10:15 Dose: 10 mg Documented by: A/P Hypertensive Urgency resolved Pneumonia Gram Positive Bacteremia Pleurisy r/o COVID19 Cholelithiasis Anemia - pain control - continue antibiotics per ID - f/u cultures, serologies - DVT prophylaxis
[2019-08-07] MEDS ORDERED: POTASSIUM CHLORIDE TABS 10 MEQ TABLET.ER (FP) PO ONE (10:40)
[2019-08-07] MEDS ORDERED: D5-LR+20 MEQ KCL - 20 MEQ/1,000 ML INFUS.BAG IV SCH (10:45)
[2019-08-07] MEDS: CEFTRIAXONE 1 GM in DEXTROSE 5%-WATER - 50 ML IVPB SCH (10:59)
--- NOTE | 2019-08-07 11:26 | PN ---
Progress Note, Physician History of Present Illness: AWAKE, ALERT IN BED OFFERS NO COMPLAINTS NO C/O ABDOMINAL PAIN, N/V AFEBRILE WBC IMPROVED BC S AUREUS ? SOURCE - Current Medication List Current Medications: Active Medications Acetaminophen (Tylenol -) 1,000 mg PO Q6H PRN PRN Reason: PAIN LEVEL 1-5 Last Admin: 08/07/19 07:34 Dose: 1,000 mg Documented by: Azithromycin 250 mg/ Dextrose 250 mls @ 250 mls/hr IVPB DAILY [facility] Last Admin: 08/06/19 11:24 Dose: 250 mls/hr Documented by: Ceftriaxone Sodium 1 gm/ (Dextrose) 50 mls @ 100 mls/hr IVPB DAILY [facility]; Protocol Last Admin: 08/07/19 10:59 Dose: 100 mls/hr Documented by: Vancomycin HCl 1,250 mg/ (Dextrose) 250 mls @ 166.667 mls/hr IVPB BID@0500,1700 [facility]; Protocol Last Admin: 08/07/19 05:55 Dose: 166.667 mls/hr Documented by: Metronidazole (Flagyl 500mg Premixed Ivpb -) 500 mg in 100 mls @ 100 mls/hr IVPB Q8H-IV [facility] Last Admin: 08/07/19 10:19 Dose: 100 mls/hr Documented by: Dextrose/Lactated Ringer's (D5-Lr+20 Meq Kcl -) 20 meq in 1,000 mls @ 50 mls/hr IV ASDIR [facility] Ketorolac Tromethamine (Toradol Injection -) 30 mg IVPUSH Q6H PRN PRN Reason: PAIN LEVEL 6-10 Stop: 08/11/19 11:31 Last Admin: 08/07/19 10:15 Dose: 30 mg Documented by: Lisinopril (Prinivil) 10 mg PO DAILY [facility] Last Admin: 08/07/19 10:15 Dose: 10 mg Documented by: - Objective Vital Signs: Vital Signs Temperature 99.7 F H 08/07/19 08:43 Pulse Rate 86 08/07/19 08:43 Respiratory Rate 18 08/07/19 08:43 Blood Pressure 140/71 08/07/19 08:43 O2 Sat by Pulse Oximetry (%) 94 L 08/07/19 09:00 Constitutional: Yes: Well Nourished Eyes: Yes: Conjunctiva Clear Cardiovascular: Yes: Regular Rate and Rhythm, S1, S2 Respiratory: Yes: CTA Bilaterally Gastrointestinal: Yes: Normal Bowel Sounds, Soft. No: Tenderness Edema: No Labs: CBC, BMP 08/07/19 06:49 08/07/19 06:49 Assessment/Plan S AUREUS BACTEREMIA ? SOURCE AWAIT BC REPEAT BC CONTINUE VANCOMYCIN ECHOCARDIOGRAM
[2019-08-07] MEDS: AZITHROMYCIN IVPB 250 MG in DEXTROSE 5%-WATER - 250 ML IVPB SCH (11:36)
--- NOTE | 2019-08-07 12:10 | PN ---
Progress Note, Physician Chief Complaint: RUQ abdominal pain Nausea+ vomiting History of Present Illness: On no medications at home Symptoms started on 08/04/19 around noon with RUQ abd pain that was sharp stabbing radiating to right back with no vomiting. Pt went to [facility], Has CXR, CT abd+ EKG- no known results, pt was discharged. Pt continued to have RUQ pain, had Vomiting x 1, when daughter initiated EMS and pt was brought in to the hospital. Pt denies any pain associated with meals, denies any N/V/D currently. c/O mild SOB r/t pain. CTAP reviewed, RLL opacities, possible developing pneumonia or atelectasis 2/2 to shallow breaths. NAD Pain 0/10 today self ambulatory Denies any SOB Repeat CXR RLL pneumonia On IV abx Seen by ID DINORA + Benjie - Current Medication List Current Medications: Active Medications Acetaminophen (Tylenol -) 1,000 mg PO Q6H PRN PRN Reason: PAIN LEVEL 1-5 Last Admin: 08/07/19 07:34 Dose: 1,000 mg Documented by: Ceftriaxone Sodium 1 gm/ (Dextrose) 50 mls @ 100 mls/hr IVPB DAILY [facility]; Protocol Last Admin: 08/07/19 10:59 Dose: 100 mls/hr Documented by: Vancomycin HCl 1,250 mg/ (Dextrose) 250 mls @ 166.667 mls/hr IVPB BID@0500,1700 [facility]; Protocol Last Admin: 08/07/19 05:55 Dose: 166.667 mls/hr Documented by: Dextrose/Lactated Ringer's (D5-Lr+20 Meq Kcl -) 20 meq in 1,000 mls @ 50 mls/hr IV ASDIR [facility] Ketorolac Tromethamine (Toradol Injection -) 30 mg IVPUSH Q6H PRN PRN Reason: PAIN LEVEL 6-10 Stop: 08/11/19 11:31 Last Admin: 08/07/19 10:15 Dose: 30 mg Documented by: Lisinopril (Prinivil) 10 mg PO DAILY [facility] Last Admin: 08/07/19 10:15 Dose: 10 mg Documented by: - Objective Vital Signs: Vital Signs Temperature 99.7 F H 08/07/19 08:43 Pulse Rate 86 08/07/19 08:43 Respiratory Rate 18 08/07/19 08:43 Blood Pressure 140/71 08/07/19 08:43 O2 Sat by Pulse Oximetry (%) 94 L 08/07/19 09:00 Constitutional: Yes: Well Nourished, No Distress, Calm Cardiovascular: Yes: Regular Rate and Rhythm Respiratory: Yes: Regular, CTA Bilaterally Gastrointestinal: Yes: Normal Bowel Sounds, Soft Genitourinary: Yes: WNL Musculoskeletal: Yes: WNL Extremities: Yes: WNL Edema: No Peripheral Pulses WNL: Yes Neurological: Yes: Alert, Oriented Psychiatric: Yes: Alert, Oriented Labs: CBC, BMP 08/07/19 06:49 08/07/19 06:49 Problem List - Problems (1) Abdominal pain, RUQ Assessment/Plan: -GI consult appreciated -HIDA scan negative -Toradol 30 mg IVP Q6H PRN -Advance diet to low sodium -D/C IVF -Leukocytosis resolved -D/C Flagyl and azithro Problems reviewed: Yes Code(s): R10.11 - RIGHT UPPER QUADRANT PAIN (2) Pneumonia Assessment/Plan: -Pulmonary consult -IV Rocephin + Azithro -ID consult -Acetaminophen for fever Problems reviewed: Yes Code(s): J18.9 - PNEUMONIA, UNSPECIFIED ORGANISM (3) HTN (hypertension) Assessment/Plan: -Lisinopril 10 mg po daily -Monitor trend Problems reviewed: Yes Code(s): I10 - ESSENTIAL (PRIMARY) HYPERTENSION (4) Hypokalemia Assessment/Plan: -Likely 2/2 to NPO status -KCL 20 meq po once -Monitor trend Problems reviewed: Yes Code(s): E87.6 - HYPOKALEMIA (5) Bacteremia Assessment/Plan: -BC: Microbiology 08/06/19 16:20 Blood - Peripheral Venous Blood Culture - Preliminary Pending Organism 08/05/19 23:10 Blood - Peripheral Venous Blood Culture - Preliminary Staphylococcus Latex Coag Pos 08/05/19 23:10 Blood - Peripheral Venous Blood Culture - Preliminary Staphylococcus Latex Coag Pos 08/06/19 11:15 Urine For Antigen Detection Legionella Antigen - Final 08/06/19 11:15 Urine For Antigen Detection Streptococcus pneumoniae Antigen (M - Final -ID consult -IV Rocephin+ Vanco Problems reviewed: Yes Code(s): R78.81 - BACTEREMIA Assessment/Plan See problem list
--- NOTE | 2019-08-07 15:47 | ECHO ---
Name: DAVID BUCKNER Exam:Adult Echocardiogram Study Date: 08/07/2019 02:53 PM Age: 59 yrs Reason For Study: staph + Height: 73 in Weight: 189 lb BSA: 2.1 m2 MMode/2D Measurements & Calculations IVSd: 1.3 cm Ao root diam: 3.4 cm LVIDd: 5.8 cm LA dimension: 3.1 cm LVIDs: 4.8 cm LVPWd: 1.4 cm LVPWs: 1.8 cm EDV(Teich): 164.5 ml ESV(Teich): 105.1 ml LVOT diam: 2.5 cm LVLd ap4: 8.5 cm EDV(MOD-sp4): 250.0 ml LVLs ap4: 8.3 cm ESV(MOD-sp4): 151.0 ml SV(MOD-sp4): 99.0 ml LAV (MOD-bp): 56.3 ml TAPSE: 2.3 cm RV S Alonso: 14.4 cm/sec Doppler Measurements & Calculations MV E max alonso: 39.8 cm/sec Ao V2 max: 141.2 cm/sec MV A max alonso: 73.2 cm/sec Ao max P.0 mmHg MV E/A: 0.54 MARGARET(V,D): 3.0 cm2 MV dec time: 0.10 sec LV V1 max P.9 mmHg MR max alonso: 412.9 cm/sec LV V1 max: 85.9 cm/sec MR max P.5 mmHg PA V2 max: 96.4 cm/sec Med Peak E' Alonso: 10.9 cm/sec PA max P.7 mmHg Med E/e': 3.7 Lat Peak E' Alonso: 6.2 cm/sec Lat E/e': 6.4 Procedure A complete two-dimensional transthoracic echocardiogram was performed (2D, M-mode, Doppler and color flow Doppler). Left Ventricle The left ventricle is moderately dilated. Ejection Fraction = 40-45%. Left ventricular systolic funct ion is moderately reduced. There is moderate global hypokinesis of the left ventricle. Right Ventricle The right ventricle is normal in size and function. Atria Normal left and right atrial size and function. Mitral Valve There is trace mitral regurgitation. Tricuspid Valve No tricuspid regurgitation. There was insufficient TR detected to calculate RV systolic pressure. Aortic Valve No hemodynamically significant valvular aortic stenosis. No aortic regurgitation is present. Pulmonic Valve There is no pulmonic valvular regurgitation. Great Vessels The aortic root is normal size. Pericardium/Pleura There is no pericardial effusion. Interpretation Summary The left ventricle is moderately dilated. Left ventricular systolic function is moderately reduced. There is moderate global hypokinesis of the left ventricle. The right ventricle is normal in size and function. There is trace mitral regurgitation. MD Darian Mckeon 08/07/2019 03:47 PM
--- NOTE | 2019-08-07 15:50 | PN.GI ---
GI Progress Note Subjective: HIDA neg Pleuritic right sided chest pain has improved Blood cx + staph - Objective Vital Signs: Vital Signs Temperature 99.0 F 08/07/19 14:32 Pulse Rate 90 08/07/19 14:32 Respiratory Rate 18 08/07/19 14:32 Blood Pressure 145/82 08/07/19 14:32 O2 Sat by Pulse Oximetry (%) 94 L 08/07/19 09:00 Constitutional: Calm Eyes: No: Sclera Icterus Cardiovascular: Yes: Regular Rate and Rhythm Respiratory: Yes: Diminished (right base) Gastrointestinal Inspection: No: Distention ...Auscultate: Yes: Normoactive Bowel Sounds ...Palpate: Yes: Soft. No: Hepatomegaly, Splenomegaly, Tenderness ...Percussion: No: Tympanitic Edema: No (No LE edema) Neurological: Yes: Alert Labs: CBC, BMP 08/07/19 06:49 08/07/19 06:49 Hepatic Panel Total Bilirubin 0.6 mg/dL (0.2-1) 08/07/19 06:49 AST 50 U/L (15-37) H 08/07/19 06:49 ALT 39 U/L (13-61) 08/07/19 06:49 Alkaline Phosphatase 85 U/L (45-117) 08/07/19 06:49 Albumin 2.9 g/dl (3.4-5.0) L 08/07/19 06:49 Problem List - Problems (1) Right sided abdominal pain Assessment/Plan: Suspect secondary to RLL PNA as opposed to primary GI source. Also with Staph Aureus bacteremia. ID following Code(s): R10.9 - UNSPECIFIED ABDOMINAL PAIN
[2019-08-07] MEDS ORDERED: PT OWN MED DRAWER 7, Y5N ONE ×2 (17:24→17:26)
--- NOTE | 2019-08-08 07:42 | PN ---
Progress Note, Physician History of Present Illness: pulmonary alert,feeling better,-abd pain.tmax 102.8 last night - Current Medication List Current Medications: Active Medications Acetaminophen (Tylenol -) 1,000 mg PO Q6H PRN PRN Reason: PAIN LEVEL 1-5 Last Admin: 08/07/19 20:10 Dose: 1,000 mg Documented by: Ceftriaxone Sodium 1 gm/ (Dextrose) 50 mls @ 100 mls/hr IVPB DAILY [facility]; Protocol Last Admin: 08/07/19 10:59 Dose: 100 mls/hr Documented by: Vancomycin HCl 1,250 mg/ (Dextrose) 250 mls @ 166.667 mls/hr IVPB BID@0500,1700 [facility]; Protocol Last Admin: 08/07/19 17:40 Dose: 166.667 mls/hr Documented by: Ketorolac Tromethamine (Toradol Injection -) 30 mg IVPUSH Q6H PRN PRN Reason: PAIN LEVEL 6-10 Stop: 08/11/19 11:31 Last Admin: 08/07/19 22:36 Dose: 30 mg Documented by: Lisinopril (Prinivil) 10 mg PO DAILY [facility] Last Admin: 08/07/19 10:15 Dose: 10 mg Documented by: - Objective Vital Signs: Vital Signs Temperature 98.7 F 08/08/19 05:00 Pulse Rate 84 08/08/19 05:00 Respiratory Rate 18 08/08/19 00:00 Blood Pressure 156/103 H 08/08/19 05:00 O2 Sat by Pulse Oximetry (%) 95 08/07/19 21:00 Constitutional: Yes: Well Nourished, Calm Eyes: Yes: WNL HENT: Yes: WNL Neck: Yes: WNL Cardiovascular: Yes: Regular Rate and Rhythm, S1, S2 Respiratory: Yes: CTA Bilaterally Gastrointestinal: Yes: Normal Bowel Sounds, Soft Extremities: Yes: WNL Edema: No Labs: CBC, BMP Problem List - Problems (1) HTN (hypertension) Code(s): I10 - ESSENTIAL (PRIMARY) HYPERTENSION (2) Pneumonia Code(s): J18.9 - PNEUMONIA, UNSPECIFIED ORGANISM Assessment/Plan Assessment/Plan Hypertensive Urgency Pneumonia Pleurisy COVID19 negative Cholelithiasis - pain control - IV antibiotics - BP control - repeat CXR in AM - DVT prophylaxis - chest ct DR SEVILLA
[2019-08-08] MEDS: VANCOMYCIN 1,250 MG in DEXTROSE 5%-WATER - 250 ML IVPB SCH ×2 (08:18→17:20)
[2019-08-08] MEDS ORDERED: DEXTROSE 5%-WATER - 50 ML IVPB ONE (08:20)
[2019-08-08] MEDS ORDERED: cefTRIAXone SODIUM 1 GM VIAL ONE (08:20)
[2019-08-08] MEDS: ACETAMINOPHEN 500 MG TABLET (FP) PO PRN ×2 (08:37→16:24)
[2019-08-08] MEDS: CEFTRIAXONE 1 GM in DEXTROSE 5%-WATER - 50 ML IVPB SCH (09:10)
[2019-08-08] MEDS: LISINOPRIL 10 MG TABLET (FP) PO SCH (09:11)
--- NOTE | 2019-08-08 10:28 | PN ---
Progress Note (short form) - Note Progress Note: Gastroenterology note: Pt without any complaints of nausea or emesis, tolerating a regular diet. Passing flatus, no BM since admission to the hospital. States that he had a fever last pm. Vital Signs Period Temp Pulse Resp BP Sys/Pinedo Pulse Ox Last 24 Hr 98.7 F-102.8 F 82-110 18-18 144-160/82-103 95 GEN: A&0x4, NAD ABD: soft, non-distended, non-tender CBC, BMP 08/07/19 06:49 08/07/19 06:49 Laboratory Tests 08/07/19 06:49 Total Bilirubin 0.6 AST 50 H ALT 39 Alkaline Phosphatase 85 Total Protein 6.8 A/P: 59 yo male admitted with fevers, right upper abd/flank pain. Found to have RLL atlectasis and ultrasound with Gallstones. <Naomi Ferro - Last Filed: 08/08/19 11:06> - Note Progress Note: AGREE WITH ASSESSMENT AND PLAN OUTLINED ABOVE <Gracia Cordero - Last Filed: 08/08/19 17:05> Problem List - Problems (1) Right sided abdominal pain Assessment/Plan: Currently he is is tolerating a regular diet and his HIDA scan was negative. The patient is being treated for a RLL atelctasis/infiltrate with IV abx No further Gastroenterology issues. Recommend a low fat diet. Reconsult as needed. D/w Dr. Cordero Code(s): R10.9 - UNSPECIFIED ABDOMINAL PAIN <Naomi Ferro - Last Filed: 08/08/19 11:06>
[2019-08-08] MEDS ORDERED: LISINOPRIL 10 MG TABLET (FP) PO ONE ×2 (11:25→16:30)
--- NOTE | 2019-08-08 11:26 | PN ---
Progress Note, Physician Chief Complaint: RUQ abdominal pain Nausea+ vomiting History of Present Illness: On no medications at home Symptoms started on 08/04/19 around noon with RUQ abd pain that was sharp stabbing radiating to right back with no vomiting. Pt went to [facility], Has CXR, CT abd+ EKG- no known results, pt was discharged. Pt continued to have RUQ pain, had Vomiting x 1, when daughter initiated EMS and pt was brought in to the hospital. Pt denies any pain associated with meals, denies any N/V/D currently. c/O mild SOB r/t pain. CTAP reviewed, RLL opacities, possible developing pneumonia or atelectasis 2/2 to shallow breaths. NAD Pain 0/10 today self ambulatory Denies any SOB Repeat CXR RLL pneumonia On IV abx Seen by MELVIN FARIAS + Benjie Cardona Current Medication List Current Medications: Active Medications Acetaminophen (Tylenol -) 1,000 mg PO Q6H PRN PRN Reason: PAIN LEVEL 1-5 Last Admin: 08/08/19 08:37 Dose: 1,000 mg Documented by: Ceftriaxone Sodium 1 gm/ (Dextrose) 50 mls @ 100 mls/hr IVPB DAILY [facility]; Protocol Last Admin: 08/08/19 09:10 Dose: 100 mls/hr Documented by: Vancomycin HCl 1,250 mg/ (Dextrose) 250 mls @ 166.667 mls/hr IVPB BID@0500,1700 [facility]; Protocol Last Admin: 08/08/19 08:18 Dose: Not Given Documented by: Ketorolac Tromethamine (Toradol Injection -) 30 mg IVPUSH Q6H PRN PRN Reason: PAIN LEVEL 6-10 Stop: 08/11/19 11:31 Last Admin: 08/07/19 22:36 Dose: 30 mg Documented by: Lisinopril (Prinivil) 10 mg PO DAILY [facility] Last Admin: 08/08/19 09:11 Dose: 10 mg Documented by: - Objective Vital Signs: Vital Signs Temperature 98.7 F 08/08/19 05:00 Pulse Rate 84 08/08/19 05:00 Respiratory Rate 18 08/08/19 00:00 Blood Pressure 156/103 H 08/08/19 05:00 O2 Sat by Pulse Oximetry (%) 95 08/07/19 21:00 Constitutional: Yes: Well Nourished, No Distress, Calm Cardiovascular: Yes: Regular Rate and Rhythm Respiratory: Yes: Regular, Rales (RLL) Gastrointestinal: Yes: Normal Bowel Sounds, Soft Genitourinary: Yes: WNL Musculoskeletal: Yes: WNL Extremities: Yes: WNL Edema: No Peripheral Pulses WNL: Yes Neurological: Yes: Alert, Oriented Psychiatric: Yes: Alert, Oriented Labs: CBC, BMP 08/07/19 06:49 08/07/19 06:49 Problem List - Problems (1) Abdominal pain, RUQ Assessment/Plan: -GI consult appreciated -HIDA scan negative -Toradol 30 mg IVP Q6H PRN -Advance diet to low sodium -D/C IVF -Leukocytosis resolved -D/C Flagyl and azithro -Continue Rocephin + Vanco Problems reviewed: Yes Code(s): R10.11 - RIGHT UPPER QUADRANT PAIN (2) Pneumonia Assessment/Plan: -Pulmonary consult -IV Rocephin + Vanco -ID consult -Acetaminophen for fever -Febrile overnight Problems reviewed: Yes Code(s): J18.9 - PNEUMONIA, UNSPECIFIED ORGANISM (3) HTN (hypertension) Assessment/Plan: -Lisinopril 10 mg po daily -Monitor trend Problems reviewed: Yes Code(s): I10 - ESSENTIAL (PRIMARY) HYPERTENSION (4) Hypokalemia Assessment/Plan: -resolved Problems reviewed: Yes Code(s): E87.6 - HYPOKALEMIA (5) Bacteremia Assessment/Plan: -BC: Microbiology 08/06/19 16:20 Blood - Peripheral Venous Blood Culture - Preliminary Pending Organism 08/05/19 23:10 Blood - Peripheral Venous Blood Culture - Preliminary Staphylococcus Latex Coag Pos 08/05/19 23:10 Blood - Peripheral Venous Blood Culture - Preliminary Staphylococcus Latex Coag Pos 08/06/19 11:15 Urine For Antigen Detection Legionella Antigen - Final 08/06/19 11:15 Urine For Antigen Detection Streptococcus pneumoniae Antigen (M - Final -ID consult -IV Rocephin+ Vanco Problems reviewed: Yes Code(s): R78.81 - BACTEREMIA Assessment/Plan See problem list
[2019-08-08 11:43] LABS: BASO % 0.4 % (0-2.0); EOS % 0.4 % (0-4.5); HEMATOCRIT 34.1 % (35.4-49); LYMPH % 13.5 % (8-40); MCH 32.5 pg (25.7-33.7); MCHC 32.3 g/dl (32.0-35.9); MEAN CELL VOLUME 100.5 fl (80-96); MEAN PLT VOLUME 9.5 fl (7.5-11.1); MONO % 14.7 % (3.8-10.2); PLATELET COUNT 250 K/MM3 (134-434); RBC 3.39 M/mm3 (4.00-5.60); RDW 13.1 % (11.9-15.9); WHITE BLOOD COUNT 10.6 K/mm3 (4.0-10.0)
[2019-08-08 11:54] LABS: ALBUMIN 2.8 g/dl (3.4-5.0); BILIRUBIN,TOTAL 0.4 mg/dL (0.2-1); BLOOD UREA NITROGEN 13.8 mg/dL (7-18); CALCIUM 8.8 mg/dL (8.5-10.1); CREATININE 1.3 mg/dL (0.55-1.3); POTASSIUM 3.7 mmol/L (3.5-5.1); TOT PROT 6.9 g/dl (6.4-8.2)
[2019-08-08] MEDS ORDERED: PT OWN MED DRAWER 7, Y5N ONE (16:44)
[2019-08-08] MEDS: KETOROLAC TROMETHAMINE 30 MG/1 ML VIAL IVPUSH PRN (20:20)
--- NOTE | 2019-08-08 23:49 | PN ---
Progress Note (short form) - Note Progress Note: ID C/O R ?RIB PAIN EXACERBATED BY DEEP INSPIRATION TEMP 102.8 NOTED WBC INCREASED 10.6 BC MSSA AWAKE, ALERT TMAX 102.8 COR S1S2 LUNGS CLEAR ABDO SOFT, NON TENDER + ANTERIOR R LOWER RIB TENDERNESS NO EDEMA AWAIT FINAL BLOOD C/C ECHO NO VEGETATIONS
[2019-08-09] MEDS ORDERED: PT OWN MED DRAWER 7, Y5N ONE ×3 (03:51→21:39)
[2019-08-09] MEDS: ACETAMINOPHEN 500 MG TABLET (FP) PO PRN ×3 (03:56→22:21)
[2019-08-09] MEDS: VANCOMYCIN 1,250 MG in DEXTROSE 5%-WATER - 250 ML IVPB SCH (05:00)
--- NOTE | 2019-08-09 09:13 | PN ---
Progress Note, Physician History of Present Illness: AWAKE, ALERT IN BED TEMPS DOWN AFEBRILE NO C/O ABDOMINAL PAIN, N/V STILL WITH R ANTERIOR RIB PAIN CT CHEST REVEALS R PLEURAL EFFUSION - Current Medication List Current Medications: Active Medications Acetaminophen (Tylenol -) 1,000 mg PO Q6H PRN PRN Reason: PAIN LEVEL 1-5 Last Admin: 08/09/19 03:56 Dose: 1,000 mg Documented by: Nafcillin Sodium 2 gm/ (Dextrose) 100 mls @ 100 mls/hr IVPB Q4H-IV [facility]; Protocol Ketorolac Tromethamine (Toradol Injection -) 30 mg IVPUSH Q6H PRN PRN Reason: PAIN LEVEL 6-10 Stop: 08/11/19 11:31 Last Admin: 08/08/19 20:20 Dose: 30 mg Documented by: Lisinopril (Prinivil) 20 mg PO DAILY [facility] - Objective Vital Signs: Vital Signs Temperature 98.6 F 08/09/19 06:00 Pulse Rate 75 08/09/19 06:00 Respiratory Rate 18 08/09/19 06:00 Blood Pressure 156/95 08/09/19 06:00 O2 Sat by Pulse Oximetry (%) 96 08/08/19 21:00 Constitutional: Yes: No Distress Eyes: Yes: Conjunctiva Clear Cardiovascular: Yes: Regular Rate and Rhythm, S1, S2 Respiratory: Yes: CTA Bilaterally Gastrointestinal: Yes: Normal Bowel Sounds, Soft. No: Tenderness Musculoskeletal: Yes: Other (+ R ANTERIOR LOWER RIB TENDERNESS) Labs: CBC, BMP 08/08/19 07:20 08/08/19 07:20 Assessment/Plan S AUREUS BACTEREMIA ? SOURCE R RIB PAIN ? PLEURITIC R PL EFFUSION SUBSTITUTE NAFCILLIN REPEAT BC AM
[2019-08-09 09:23] LABS: BASO % 0.3 % (0-2.0); EOS % 2.8 % (0-4.5); HEMATOCRIT 32.3 % (35.4-49); HEMOGLOBIN 10.5 GM/dL (11.7-16.9); MCH 32.5 pg (25.7-33.7); MCHC 32.6 g/dl (32.0-35.9); MEAN CELL VOLUME 99.7 fl (80-96); MONO % 16.3 % (3.8-10.2); NEUT % 52.6 % (42.8-82.8); PLATELET COUNT 263 K/MM3 (134-434); RBC 3.24 M/mm3 (4.00-5.60); RDW 12.9 % (11.9-15.9); WHITE BLOOD COUNT 7.7 K/mm3 (4.0-10.0)
[2019-08-09 09:59] LABS: POTASSIUM 3.7 mmol/L (3.5-5.1)
[2019-08-09] MEDS ORDERED: NAFCILLIN - 2 GM in DEXTROSE 5%-WATER - 100 ML IVPB SCH (10:00)
[2019-08-09] MEDS: LISINOPRIL 10 MG TABLET (FP) PO SCH (10:02)
[2019-08-09 10:04] LABS: ALBUMIN 2.8 g/dl (3.4-5.0); BILIRUBIN,TOTAL 0.4 mg/dL (0.2-1); BLOOD UREA NITROGEN 13.4 mg/dL (7-18); CALCIUM 8.7 mg/dL (8.5-10.1); CREATININE 1.2 mg/dL (0.55-1.3); TOT PROT 6.9 g/dl (6.4-8.2)
[2019-08-09] MEDS: NAFCILLIN - 2 GM in DEXTROSE 5%-WATER - 100 ML IVPB SCH ×4 (10:38→21:42)
--- NOTE | 2019-08-09 12:13 | PN ---
Progress Note, Physician - Current Medication List Current Medications: Active Medications Acetaminophen (Tylenol -) 1,000 mg PO Q6H PRN PRN Reason: PAIN LEVEL 1-5 Last Admin: 08/09/19 10:02 Dose: 1,000 mg Documented by: Nafcillin Sodium 2 gm/ (Dextrose) 100 mls @ 100 mls/hr IVPB Q4H-IV [facility]; Protocol Last Admin: 08/09/19 10:38 Dose: 100 mls/hr Documented by: Ketorolac Tromethamine (Toradol Injection -) 30 mg IVPUSH Q6H PRN PRN Reason: PAIN LEVEL 6-10 Stop: 08/11/19 11:31 Last Admin: 08/08/19 20:20 Dose: 30 mg Documented by: Lisinopril (Prinivil) 20 mg PO DAILY [facility] Last Admin: 08/09/19 10:02 Dose: 20 mg Documented by: - Objective Vital Signs: Vital Signs Temperature 98.6 F 08/09/19 06:00 Pulse Rate 75 08/09/19 06:00 Respiratory Rate 18 08/09/19 06:00 Blood Pressure 156/95 08/09/19 06:00 O2 Sat by Pulse Oximetry (%) 96 08/08/19 21:00 Cardiovascular: Yes: Regular Rate and Rhythm Respiratory: Yes: Regular, CTA Bilaterally Gastrointestinal: Yes: Normal Bowel Sounds, Soft Labs: CBC, BMP 08/09/19 08:20 08/09/19 08:20 Assessment/Plan Problems (1) Abdominal pain, RUQ Assessment/Plan: -GI consult appreciated -HIDA scan negative -Toradol 30 mg IVP Q6H PRN -Advance diet to low sodium -D/C IVF -Leukocytosis resolved -D/C Flagyl and azithro -Continue ABx per id --nafcillin Problems reviewed: Yes Code(s): R10.11 - RIGHT UPPER QUADRANT PAIN (2) Pneumonia Assessment/Plan: -Pulmonary consult -ID consult appreciated -Acetaminophen for fever -Febrile overnight Problems reviewed: Yes Code(s): J18.9 - PNEUMONIA, UNSPECIFIED ORGANISM (3) HTN (hypertension) Assessment/Plan: -Lisinopril 10 mg po daily -Monitor trend Problems reviewed: Yes Code(s): I10 - ESSENTIAL (PRIMARY) HYPERTENSION (4) Hypokalemia Assessment/Plan: -resolved Problems reviewed: Yes Code(s): E87.6 - HYPOKALEMIA (5) Bacteremia Assessment/Plan: -BC: Microbiology 08/06/19 16:20 Blood - Peripheral Venous Blood Culture - Final Staphylococcus Aureus 08/05/19 23:10 Blood - Peripheral Venous Blood Culture - Final Staphylococcus Aureus 08/08/19 07:20 Blood - Peripheral Venous Blood Culture - Preliminary NO GROWTH OBTAINED AFTER 24 HOURS, INCUBATION TO CONTINUE FOR 4 DAYS. 08/08/19 07:30 Blood - Peripheral Venous Blood Culture - Preliminary NO GROWTH OBTAINED AFTER 24 HOURS, INCUBATION TO CONTINUE FOR 4 DAYS. 08/06/19 15:50 Blood - Peripheral Venous Blood Culture - Preliminary NO GROWTH OBTAINED AFTER 48 HOURS, INCUBATION TO CONTINUE FOR 3 DAYS. 08/05/19 23:10 Blood - Peripheral Venous Blood Culture - Final Staphylococcus Latex Coag Pos 08/06/19 11:15 Urine For Antigen Detection Legionella Antigen - Final 08/06/19 11:15 Urine For Antigen Detection Streptococcus pneumoniae Antigen (M - Final -ID consult -IV Rocephin+ Vanco--Nafcillin Problems reviewed: Yes Code(s): R78.81 - BACTEREMIA (6) Hypokenesia Assessment/Plan: -EF 40-45% -Maybe due to HTN -Add coreg -Cardio
--- NOTE | 2019-08-09 14:03 | PN ---
Progress Note (short form) - Note Progress Note: PULMONARY Feeling better. Pain mild. No fevers. No cough. Vital Signs Period Temp Pulse Resp BP Sys/Pinedo Pulse Ox Last 24 Hr 98.5 F-99.2 F 75-85 18-18 139-156/77-95 96 Gen: NAD at rest Heart: RRR Lung: right base rales Abd: soft, nontender Ext: no edema CBC, BMP 08/09/19 08:20 08/09/19 08:20 Active Medications Acetaminophen (Tylenol -) 1,000 mg PO Q6H PRN PRN Reason: PAIN LEVEL 1-5 Last Admin: 08/09/19 10:02 Dose: 1,000 mg Documented by: Carvedilol (Coreg -) 3.125 mg PO BID [facility] Enoxaparin Sodium (Lovenox -) [address] [facility] Nafcillin Sodium 2 gm/ (Dextrose) 100 mls @ 100 mls/hr IVPB Q4H-IV [facility]; Protocol Last Admin: 08/09/19 10:38 Dose: 100 mls/hr Documented by: Ketorolac Tromethamine (Toradol Injection -) 30 mg IVPUSH Q6H PRN PRN Reason: PAIN LEVEL 6-10 Stop: 08/11/19 11:31 Last Admin: 08/08/19 20:20 Dose: 30 mg Documented by: Lisinopril (Prinivil) [address] [facility] Last Admin: 08/09/19 10:02 Dose: 20 mg Documented by: A/P Hypertensive Urgency resolved Pneumonia Gram Positive Bacteremia Pleurisy Cholelithiasis Anemia - pain control - continue antibiotics per ID - f/u cultures - DVT prophylaxis
[2019-08-09] MEDS: CARVEDILOL 3.125 MG TABLET (FP) PO SCH ×2 (14:10→21:42)
[2019-08-09] MEDS: ENOXAPARIN NA (PORCINE) 40 MG/0.4 ML DISP.SYRIN SQ SCH (14:11)
[2019-08-09] MEDS: KETOROLAC TROMETHAMINE 30 MG/1 ML VIAL IVPUSH PRN (14:21)
--- NOTE | 2019-08-09 15:05 | CON.CARD ---
Consult Consult Specialty:: Cardiology Referred by:: Dr. Matthews Reason for Consultation:: Cardiomyopathy - History of Present Illness Chief Complaint: abdominal pain History of Present Illness: 59 year old man with no known pmh admitted with RUQ abdominal pain. During admission found to have staph bacteremia of unknown source. ECHO done 08/07/19 showed moderate global LV systolic dysfunction. Pt seen and examined today in nad. denies any current complaints. denies having had any chest pain. no sob. no palpitations. denies history of HTN. denies having had an echo in the past. - History Source History Provided By: Patient, Medical Record Limitations to Obtaining History: No Limitations - Past Medical History Cardio/Vascular: No: Deep Vein Thrombosis, HTN Pulmonary: No: Asthma Gastrointestinal: Yes: Other (no hisotyr of diverticular disease) Renal/: No: Hematuria, Renal Calculi Infectious Disease: Yes: Other (denies history of hepatitis) - Past Surgical History Additional Surgical History: h/o of left pneumothorax with left thoracotomy for repair of pneumothorax-20 years ago - Alcohol/Substance Use Hx Alcohol Use: Yes (few drinks socially on the weekends) - Smoking History Smoking history: Never smoked Have you smoked in the past 12 months: No Home Medications - Allergies Allergies/Adverse Reactions: Allergies Allergy/AdvReac Type Severity Reaction Status Date / Time No Known Allergies Allergy Verified 08/06/19 09:18 Family Medical History Family History: Denies Review of Systems - Review of Systems Constitutional: reports: No Symptoms Eyes: reports: No Symptoms HENT: reports: No Symptoms Neck: reports: No Symptoms Cardiovascular: reports: No Symptoms Respiratory: reports: No Symptoms Gastrointestinal: reports: Abdominal Pain Genitourinary: reports: No Symptoms Breasts: reports: No Symptoms Reported Musculoskeletal: reports: No Symptoms Integumentary: reports: No Symptoms Neurological: reports: No Symptoms Endocrine: reports: No Symptoms Hematology/Lymphatic: reports: No Symptoms Psychiatric: reports: No Symptoms Vital Signs: Vital Signs Temperature 98.5 F 08/09/19 13:59 Pulse Rate 80 08/09/19 13:59 Respiratory Rate 18 08/09/19 13:59 Blood Pressure 147/77 08/09/19 13:59 O2 Sat by Pulse Oximetry (%) 96 08/08/19 21:00 Constitutional: Yes: Well Nourished, No Distress, Calm Eyes: Yes: WNL, Conjunctiva Clear, EOM Intact HENT: Yes: WNL, Atraumatic, Normocephalic Neck: Yes: WNL, Supple, Trachea Midline Respiratory: Yes: WNL, Regular, CTA Bilaterally. No: Rales, Rhonchi, Wheezes Gastrointestinal: Yes: WNL, Normal Bowel Sounds, Soft. No: Distention, Tenderness Renal/: Yes: WNL Cardiovascular: Yes: Regular Rate and Rhythm. No: Bradycardia, Tachycardia, Pu lse Irregular, Gallop, Rub, Varicosities JVD: No Carotid Bruit: No PMI: Non-Displaced Heart Sounds: Yes: S1, S2. No: Split S2, S3, S4, Clicks, Gallop, Rub, Bruit Murmur: No: Systolic Murmur, Diastolic Murmur Musculoskeletal: Yes: WNL Extremities: Yes: WNL Edema: No Peripheral Pulses WNL: Yes Neurological: Yes: Alert, Oriented Psychiatric: Yes: Alert, Oriented - Other Data Labs, Other Data: CBC, BMP 08/09/19 08:20 08/09/19 08:20 nsr 93bpm, lvh Echo: Report Reviewed Imaging - Results Chest X-ray: Report Reviewed, Image Reviewed EKG: Report Reviewed, Image Reviewed Other: Report Reviewed, Image Reviewed Assessment/Plan 59 year old man with no known pmh admitted with RUQ abdominal pain. During admission found to have staph bacteremia of unknown source. ECHO done 08/07/19 showed moderate global LV systolic dysfunction. Pt seen and examined today in nad. denies any current complaints. denies having had any chest pain. no sob. no palpitations. denies history of HTN. denies having had an echo in the past. Cardiomyopathy -echo showed moderate global LV systolic dysfunction -likey NICM of uncertain etiology -could be secondary to undiagnosed chronic HTN or in setting of infection -given no symptoms of acute decompensated CHF suggests the cardiomyopathy is not a new event -currently euvolemic -cont Coreg and Lisinopril -will need outpatient fup for re-evaluation, likely ischemic evaluation, and adjustment in meds as needed
[2019-08-10] MEDS: NAFCILLIN - 2 GM in DEXTROSE 5%-WATER - 100 ML IVPB SCH ×6 (01:33→21:03)
[2019-08-10] MEDS: KETOROLAC TROMETHAMINE 30 MG/1 ML VIAL IVPUSH PRN (05:40)
[2019-08-10] MEDS ORDERED: PT OWN MED DRAWER 7, Y5N ONE ×4 (09:33→20:54)
[2019-08-10 09:36] LABS: BASO % 0.4 % (0-2.0); EOS % 4.6 % (0-4.5); HEMATOCRIT 32.7 % (35.4-49); LYMPH % 27.5 % (8-40); MCH 33.5 pg (25.7-33.7); MCHC 33.6 g/dl (32.0-35.9); MEAN CELL VOLUME 99.8 fl (80-96); MONO % 14.5 % (3.8-10.2); PLATELET COUNT 304 K/MM3 (134-434); RBC 3.27 M/mm3 (4.00-5.60); RDW 12.9 % (11.9-15.9); WHITE BLOOD COUNT 6.2 K/mm3 (4.0-10.0)
[2019-08-10] MEDS: CARVEDILOL 3.125 MG TABLET (FP) PO SCH ×2 (09:40→21:02)
[2019-08-10] MEDS: ENOXAPARIN NA (PORCINE) 40 MG/0.4 ML DISP.SYRIN SQ SCH (09:40)
[2019-08-10] MEDS: LISINOPRIL 10 MG TABLET (FP) PO SCH (09:40)
[2019-08-10 10:02] LABS: POTASSIUM 3.7 mmol/L (3.5-5.1)
[2019-08-10 10:08] LABS: BLOOD UREA NITROGEN 14.5 mg/dL (7-18); CREATININE 1.4 mg/dL (0.55-1.3)
--- NOTE | 2019-08-10 13:40 | PN ---
Progress Note (short form) - Note Progress Note: PULMONARY Feeling better. Pain mild. No fevers. No cough. Blood culture from 08/07 positive. Vital Signs Period Temp Pulse Resp BP Sys/Pinedo Pulse Ox Last 24 Hr 98.5 F-98.6 F 77-87 18-19 143-158/77-94 96 Gen: NAD at rest Heart: RRR Lung: right base rales Abd: soft, nontender Ext: no edema CBC, BMP 08/10/19 08:45 08/10/19 08:45 Active Medications Acetaminophen (Tylenol -) 1,000 mg PO Q6H PRN PRN Reason: PAIN LEVEL 1-5 Last Admin: 08/09/19 22:21 Dose: 1,000 mg Documented by: Carvedilol (Coreg -) 3.125 mg PO BID [facility] Last Admin: 08/10/19 09:40 Dose: 3.125 mg Documented by: Enoxaparin Sodium (Lovenox -) 40 mg SQ DAILY [facility] Last Admin: 08/10/19 09:40 Dose: 40 mg Documented by: Nafcillin Sodium 2 gm/ (Dextrose) 100 mls @ 100 mls/hr IVPB Q4H-IV [facility]; Protocol Last Admin: 08/10/19 09:40 Dose: 100 mls/hr Documented by: Ketorolac Tromethamine (Toradol Injection -) 30 mg IVPUSH Q6H PRN PRN Reason: PAIN LEVEL 6-10 Stop: 08/11/19 11:31 Last Admin: 08/10/19 05:40 Dose: 30 mg Documented by: Lisinopril (Prinivil) 20 mg PO DAILY [facility] Last Admin: 08/10/19 09:40 Dose: 20 mg Documented by: A/P Hypertensive Urgency resolved Pneumonia Staph Bacteremia Pleurisy LV Systolic Dysfunction Cholelithiasis Anemia - pain control - continue antibiotics per ID - f/u pending cultures - DVT prophylaxis
--- NOTE | 2019-08-10 13:50 | PN ---
Progress Note, Physician - Current Medication List Current Medications: Active Medications Acetaminophen (Tylenol -) 1,000 mg PO Q6H PRN PRN Reason: PAIN LEVEL 1-5 Last Admin: 08/09/19 22:21 Dose: 1,000 mg Documented by: Carvedilol (Coreg -) 3.125 mg PO BID [facility] Last Admin: 08/10/19 09:40 Dose: 3.125 mg Documented by: Enoxaparin Sodium (Lovenox -) 40 mg SQ DAILY [facility] Last Admin: 08/10/19 09:40 Dose: 40 mg Documented by: Nafcillin Sodium 2 gm/ (Dextrose) 100 mls @ 100 mls/hr IVPB Q4H-IV [facility]; Protocol Last Admin: 08/10/19 09:40 Dose: 100 mls/hr Documented by: Ketorolac Tromethamine (Toradol Injection -) 30 mg IVPUSH Q6H PRN PRN Reason: PAIN LEVEL 6-10 Stop: 08/11/19 11:31 Last Admin: 08/10/19 05:40 Dose: 30 mg Documented by: Lisinopril (Prinivil) 20 mg PO DAILY [facility] Last Admin: 08/10/19 09:40 Dose: 20 mg Documented by: - Objective Vital Signs: Vital Signs Temperature 98.6 F 08/10/19 05:57 Pulse Rate 87 08/10/19 05:57 Respiratory Rate 18 08/10/19 05:57 Blood Pressure 158/89 08/10/19 05:57 O2 Sat by Pulse Oximetry (%) 96 08/09/19 21:00 Cardiovascular: Yes: Regular Rate and Rhythm Respiratory: Yes: Regular, CTA Bilaterally Gastrointestinal: Yes: Normal Bowel Sounds, Soft Labs: CBC, BMP 08/10/19 08:45 08/10/19 08:45 Assessment/Plan Problems (1) Abdominal pain, RUQ Assessment/Plan: -GI consult appreciated -HIDA scan negative -Toradol 30 mg IVP Q6H PRN -Advance diet to low sodium -D/C IVF -Leukocytosis resolved -D/C Flagyl and azithro -Continue ABx per id --nafcillin Problems reviewed: Yes Code(s): R10.11 - RIGHT UPPER QUADRANT PAIN (2) Pneumonia Assessment/Plan: -Pulmonary consult -ID consult appreciated -Acetaminophen for fever -Febrile overnight Problems reviewed: Yes Code(s): J18.9 - PNEUMONIA, UNSPECIFIED ORGANISM (3) HTN (hypertension) Assessment/Plan: -Lisinopril 10 mg po daily -Monitor trend Problems reviewed: Yes Code(s): I10 - ESSENTIAL (PRIMARY) HYPERTENSION (4) Hypokalemia Assessment/Plan: -resolved Problems reviewed: Yes Code(s): E87.6 - HYPOKALEMIA (5) Bacteremia Assessment/Plan: -BC: Microbiology 08/08/19 07:20 Blood - Peripheral Venous Blood Culture - Preliminary NO GROWTH OBTAINED AFTER 48 HOURS, INCUBATION TO CONTINUE FOR 3 DAYS. 08/08/19 07:30 Blood - Peripheral Venous Blood Culture - Preliminary Pending Organism 08/06/19 15:50 Blood - Peripheral Venous Blood Culture - Preliminary NO GROWTH OBTAINED AFTER 72 HOURS, INCUBATION TO CONTINUE FOR 2 DAYS. 08/06/19 16:20 Blood - Peripheral Venous Blood Culture - Final Staphylococcus Aureus 08/05/19 23:10 Blood - Peripheral Venous Blood Culture - Final Staphylococcus Aureus 08/05/19 23:10 Blood - Peripheral Venous Blood Culture - Final Staphylococcus Latex Coag Pos 08/06/19 11:15 Urine For Antigen Detection Legionella Antigen - Final 08/06/19 11:15 Urine For Antigen Detection Streptococcus pneumoniae Antigen (M - Final -ID consult -IV Rocephin+ Vanco--Nafcillin Problems reviewed: Yes Code(s): R78.81 - BACTEREMIA (6) Hypokenesia Assessment/Plan: -EF 40-45% -Maybe due to HTN -Add coreg -Cardio
[2019-08-10] MEDS: ACETAMINOPHEN 500 MG TABLET (FP) PO PRN ×2 (14:33→21:06)
[2019-08-11] MEDS ORDERED: PT OWN MED DRAWER 7, Y5N ONE ×2 (02:05→05:46)
[2019-08-11] MEDS: NAFCILLIN - 2 GM in DEXTROSE 5%-WATER - 100 ML IVPB SCH ×6 (02:39→21:29)
[2019-08-11] MEDS: KETOROLAC TROMETHAMINE 30 MG/1 ML VIAL IVPUSH PRN (02:40)
--- NOTE | 2019-08-11 09:30 | PN ---
Progress Note, Physician - Current Medication List Current Medications: Active Medications Acetaminophen (Tylenol -) 1,000 mg PO Q6H PRN PRN Reason: PAIN LEVEL 1-5 Last Admin: 08/10/19 21:06 Dose: 1,000 mg Documented by: Carvedilol (Coreg -) 3.125 mg PO BID [facility] Last Admin: 08/10/19 21:02 Dose: 3.125 mg Documented by: Enoxaparin Sodium (Lovenox -) 40 mg SQ DAILY [facility] Last Admin: 08/10/19 09:40 Dose: 40 mg Documented by: Nafcillin Sodium 2 gm/ (Dextrose) 100 mls @ 100 mls/hr IVPB Q4H-IV [facility]; Protocol Last Admin: 08/11/19 05:51 Dose: 100 mls/hr Documented by: Ketorolac Tromethamine (Toradol Injection -) 30 mg IVPUSH Q6H PRN PRN Reason: PAIN LEVEL 6-10 Stop: 08/11/19 11:31 Last Admin: 08/11/19 02:40 Dose: 30 mg Documented by: Lisinopril (Prinivil) 20 mg PO DAILY [facility] Last Admin: 08/10/19 09:40 Dose: 20 mg Documented by: - Objective Vital Signs: Vital Signs Temperature 98.2 F 08/11/19 06:40 Pulse Rate 75 08/11/19 06:40 Respiratory Rate 18 08/11/19 06:40 Blood Pressure 150/86 08/11/19 06:40 O2 Sat by Pulse Oximetry (%) 96 08/10/19 20:42 Cardiovascular: Yes: Regular Rate and Rhythm Respiratory: Yes: Regular, CTA Bilaterally Gastrointestinal: Yes: Normal Bowel Sounds, Soft. No: Tenderness Labs: CBC, BMP 08/10/19 08:45 08/10/19 08:45 Assessment/Plan Problems (1) Abdominal pain, RUQ Assessment/Plan: -GI consult appreciated -HIDA scan negative -Toradol 30 mg IVP Q6H PRN -Advance diet to low sodium -D/C IVF -Leukocytosis resolved -D/C Flagyl and azithro -Continue ABx per id --nafcillin Problems reviewed: Yes Code(s): R10.11 - RIGHT UPPER QUADRANT PAIN (2) Pneumonia Assessment/Plan: -Pulmonary consult -ID consult appreciated -Acetaminophen for fever -Febrile overnight Problems reviewed: Yes Code(s): J18.9 - PNEUMONIA, UNSPECIFIED ORGANISM (3) HTN (hypertension) Assessment/Plan: -Lisinopril 10 mg po daily -Monitor trend Problems reviewed: Yes Code(s): I10 - ESSENTIAL (PRIMARY) HYPERTENSION (4) Hypokalemia Assessment/Plan: -resolved Problems reviewed: Yes Code(s): E87.6 - HYPOKALEMIA (5) Bacteremia Assessment/Plan: -BC: Microbiology 08/08/19 07:20 Blood - Peripheral Venous Blood Culture - Preliminary NO GROWTH OBTAINED AFTER 48 HOURS, INCUBATION TO CONTINUE FOR 3 DAYS. 08/08/19 07:30 Blood - Peripheral Venous Blood Culture - Preliminary Pending Organism 08/06/19 15:50 Blood - Peripheral Venous Blood Culture - Preliminary NO GROWTH OBTAINED AFTER 72 HOURS, INCUBATION TO CONTINUE FOR 2 DAYS. 08/06/19 16:20 Blood - Peripheral Venous Blood Culture - Final Staphylococcus Aureus 08/05/19 23:10 Blood - Peripheral Venous Blood Culture - Final Staphylococcus Aureus 08/05/19 23:10 Blood - Peripheral Venous Blood Culture - Final Staphylococcus Latex Coag Pos 08/06/19 11:15 Urine For Antigen Detection Legionella Antigen - Final 08/06/19 11:15 Urine For Antigen Detection Streptococcus pneumoniae Antigen (M - Final -ID consult -IV Rocephin+ Vanco--Nafcillin Problems reviewed: Yes Code(s): R78.81 - BACTEREMIA (6) Hypokenesia Assessment/Plan: -EF 40-45% -Maybe due to HTN -Add coreg -Cardio
[2019-08-11] MEDS: LISINOPRIL 10 MG TABLET (FP) PO SCH (10:03)
[2019-08-11] MEDS: CARVEDILOL 3.125 MG TABLET (FP) PO SCH ×2 (10:03→21:30)
[2019-08-11] MEDS: ENOXAPARIN NA (PORCINE) 40 MG/0.4 ML DISP.SYRIN SQ SCH (10:04)
[2019-08-11 10:28] LABS: BASO % 0.7 % (0-2.0); EOS % 4.2 % (0-4.5); HEMATOCRIT 32.1 % (35.4-49); HEMOGLOBIN 10.5 GM/dL (11.7-16.9); LYMPH % 29.2 % (8-40); MCH 33.1 pg (25.7-33.7); MCHC 32.7 g/dl (32.0-35.9); MEAN CELL VOLUME 101.3 fl (80-96); MEAN PLT VOLUME 8.8 fl (7.5-11.1); MONO % 13.8 % (3.8-10.2); NEUT % 52.1 % (42.8-82.8); PLATELET COUNT 330 K/MM3 (134-434); RBC 3.17 M/mm3 (4.00-5.60); RDW 13.2 % (11.9-15.9); WHITE BLOOD COUNT 6.6 K/mm3 (4.0-10.0)
[2019-08-11 11:04] LABS: ALBUMIN 2.7 g/dl (3.4-5.0); BLOOD UREA NITROGEN 14.8 mg/dL (7-18); CALCIUM 8.7 mg/dL (8.5-10.1); POTASSIUM 3.7 mmol/L (3.5-5.1)
[2019-08-11 11:06] LABS: BILIRUBIN,TOTAL 0.7 mg/dL (0.2-1); CREATININE 1.4 mg/dL (0.55-1.3); TOT PROT 6.8 g/dl (6.4-8.2)
--- NOTE | 2019-08-11 13:12 | PN ---
Progress Note (short form) - Note Progress Note: Breathing feels OK. Pain is mild. No fevers. No cough. Intake & Output 08/08/19 08/09/19 08/10/19 08/11/19 23:59 23:59 23:59 23:59 Intake Total 1190 1510 2050 180 Balance 1190 1510 0 180 Last Vital Signs Temp Pulse Resp BP Pulse Ox 98.2 F 75 18 150/86 96 08/11/19 06:40 08/11/19 06:40 08/11/19 06:40 08/11/19 06:40 08/10/19 20:42 Active Medications Acetaminophen (Tylenol -) 1,000 mg PO Q6H PRN PRN Reason: PAIN LEVEL 1-5 Last Admin: 08/10/19 21:06 Dose: 1,000 mg Documented by: Carvedilol (Coreg -) 3.125 mg PO BID [facility] Last Admin: 08/11/19 10:03 Dose: 3.125 mg Documented by: Enoxaparin Sodium (Lovenox -) 40 mg SQ DAILY [facility] Last Admin: 08/11/19 10:04 Dose: 40 mg Documented by: Nafcillin Sodium 2 gm/ (Dextrose) 100 mls @ 100 mls/hr IVPB Q4H-IV [facility]; Protocol Last Admin: 08/11/19 10:03 Dose: 100 mls/hr Documented by: Lisinopril (Prinivil) 20 mg PO DAILY [facility] Last Admin: 08/11/19 10:03 Dose: 20 mg Documented by: Gen: NAD at rest Heart: RRR Lung: right base rales Abd: soft, nontender Ext: no edema Laboratory Results - last 24 hr 08/11/19 08/11/19 09:20 09:20 WBC 6.6 RBC 3.17 L Hgb 10.5 L Hct 32.1 L MCV 101.3 H MCH 33.1 MCHC 32.7 RDW 13.2 Plt Count 330 MPV 8.8 Absolute Neuts (auto) 3.5 Neutrophils % 52.1 Lymphocytes % 29.2 Monocytes % 13.8 H Eosinophils % 4.2 Basophils % 0.7 Nucleated RBC % 0 Sodium 140 Potassium 3.7 Chloride 106 Carbon Dioxide 28 Anion Gap 7 L BUN 14.8 Creatinine 1.4 H Est GFR (CKD-EPI)AfAm 62.84 Est GFR (CKD-EPI)NonAf 54.22 Random Glucose 120 H Calcium 8.7 Total Bilirubin 0.7 AST 30 ALT 41 Alkaline Phosphatase 145 H Total Protein 6.8 Albumin 2.7 L A/P Hypertensive Urgency resolved Pneumonia Staph Bacteremia Pleurisy LV Systolic Dysfunction Cholelithiasis Anemia - pain control - continue antibiotics per ID - DVT prophylaxis - Supplemental O2 as needed Dr Fraga
[2019-08-11] MEDS: ACETAMINOPHEN 500 MG TABLET (FP) PO PRN (18:55)
--- NOTE | 2019-08-11 21:50 | PN ---
Progress Note, Physician History of Present Illness: AWAKE, ALERT IN BED TEMPS DOWN AFEBRILE NO C/O ABDOMINAL PAIN, N/V TOLERATING ANTIBIOTICS - Current Medication List Current Medications: Active Medications Acetaminophen (Tylenol -) 1,000 mg PO Q6H PRN PRN Reason: PAIN LEVEL 1-5 Last Admin: 08/11/19 18:55 Dose: 1,000 mg Documented by: Carvedilol (Coreg -) 3.125 mg PO BID [facility] Last Admin: 08/11/19 21:30 Dose: 3.125 mg Documented by: Enoxaparin Sodium (Lovenox -) 40 mg SQ DAILY [facility] Last Admin: 08/11/19 10:04 Dose: 40 mg Documented by: Nafcillin Sodium 2 gm/ (Dextrose) 100 mls @ 100 mls/hr IVPB Q4H-IV [facility]; Protocol Last Admin: 08/11/19 21:29 Dose: 100 mls/hr Documented by: Lisinopril (Prinivil) 20 mg PO DAILY [facility] Last Admin: 08/11/19 10:03 Dose: 20 mg Documented by: - Objective Vital Signs: Vital Signs Temperature 90.7 F L 08/11/19 14:13 Pulse Rate 76 08/11/19 14:13 Respiratory Rate 18 08/11/19 14:13 Blood Pressure 151/98 08/11/19 14:13 O2 Sat by Pulse Oximetry (%) 96 08/10/19 20:42 Constitutional: Yes: No Distress Cardiovascular: Yes: Regular Rate and Rhythm, S1, S2 Respiratory: Yes: CTA Bilaterally Gastrointestinal: Yes: Normal Bowel Sounds, Soft Edema: No Labs: CBC, BMP 08/11/19 09:20 08/11/19 09:20 Assessment/Plan S AUREUS BACTEREMIA R/O ENDOCARDITIS CONTINUE NAFCILLIN REPEAT BC PENDING
[2019-08-12] MEDS: NAFCILLIN - 2 GM in DEXTROSE 5%-WATER - 100 ML IVPB SCH ×6 (01:29→21:22)
[2019-08-12] MEDS: ACETAMINOPHEN 500 MG TABLET (FP) PO PRN ×2 (06:40→21:22)
[2019-08-12 08:27] LABS: BASO % 0.5 % (0-2.0); EOS % 3.8 % (0-4.5); HEMATOCRIT 32.1 % (35.4-49); HEMOGLOBIN 10.7 GM/dL (11.7-16.9); LYMPH % 26.3 % (8-40); MCH 33.6 pg (25.7-33.7); MCHC 33.3 g/dl (32.0-35.9); MEAN CELL VOLUME 101.1 fl (80-96); MEAN PLT VOLUME 8.9 fl (7.5-11.1); MONO % 11.5 % (3.8-10.2); NEUT % 57.9 % (42.8-82.8); PLATELET COUNT 342 K/MM3 (134-434); RBC 3.18 M/mm3 (4.00-5.60); RDW 13.1 % (11.9-15.9); WHITE BLOOD COUNT 7.3 K/mm3 (4.0-10.0)
[2019-08-12 08:42] LABS: ALBUMIN 2.8 g/dl (3.4-5.0); TOT PROT 6.9 g/dl (6.4-8.2)
[2019-08-12 08:43] LABS: BLOOD UREA NITROGEN 12.8 mg/dL (7-18); CALCIUM 8.8 mg/dL (8.5-10.1); CREATININE 1.4 mg/dL (0.55-1.3); POTASSIUM 3.8 mmol/L (3.5-5.1)
[2019-08-12] MEDS: ENOXAPARIN NA (PORCINE) 40 MG/0.4 ML DISP.SYRIN SQ SCH (09:39)
[2019-08-12] MEDS: LISINOPRIL 10 MG TABLET (FP) PO SCH (09:39)
[2019-08-12] MEDS: CARVEDILOL 3.125 MG TABLET (FP) PO SCH ×2 (09:39→21:22)
--- NOTE | 2019-08-12 09:49 | PN ---
Progress Note, Physician - Current Medication List Current Medications: Active Medications Acetaminophen (Tylenol -) 1,000 mg PO Q6H PRN PRN Reason: PAIN LEVEL 1-5 Last Admin: 08/12/19 06:40 Dose: 1,000 mg Documented by: Carvedilol (Coreg -) 3.125 mg PO BID [facility] Last Admin: 08/12/19 09:39 Dose: 3.125 mg Documented by: Enoxaparin Sodium (Lovenox -) 40 mg SQ DAILY [facility] Last Admin: 08/12/19 09:39 Dose: 40 mg Documented by: Nafcillin Sodium 2 gm/ (Dextrose) 100 mls @ 100 mls/hr IVPB Q4H-IV [facility]; Protocol Last Admin: 08/12/19 09:39 Dose: 100 mls/hr Documented by: Lisinopril (Prinivil) 20 mg PO DAILY [facility] Last Admin: 08/12/19 09:39 Dose: 20 mg Documented by: - Objective Vital Signs: Vital Signs Temperature 98.2 F 08/12/19 05:00 Pulse Rate 71 08/12/19 05:00 Respiratory Rate 20 08/11/19 22:41 Blood Pressure 150/93 08/12/19 05:00 O2 Sat by Pulse Oximetry (%) 96 08/11/19 21:00 Labs: CBC, BMP 08/12/19 06:40 08/12/19 06:40
--- NOTE | 2019-08-12 12:52 | PN ---
Progress Note (short form) - Note Progress Note: Breathing feels OK. No CP or SOB. No fevers. No cough. Intake & Output 08/09/19 08/10/19 08/11/19 08/12/19 23:59 23:59 23:59 23:59 Intake Total 1509 2049 780 780 Balance 1509 2049 780 780 Last Vital Signs Temp Pulse Resp BP Pulse Ox 98.2 F 71 18 151/87 96 08/12/19 05:00 08/12/19 10:00 08/12/19 10:00 08/12/19 10:00 08/11/19 21:00 Active Medications Acetaminophen (Tylenol -) 1,000 mg PO Q6H PRN PRN Reason: PAIN LEVEL 1-5 Last Admin: 08/12/19 06:40 Dose: 1,000 mg Documented by: Carvedilol (Coreg -) 3.125 mg PO BID [facility] Last Admin: 08/12/19 09:39 Dose: 3.125 mg Documented by: Enoxaparin Sodium (Lovenox -) 40 mg SQ DAILY [facility] Last Admin: 08/12/19 09:39 Dose: 40 mg Documented by: Nafcillin Sodium 2 gm/ (Dextrose) 100 mls @ 100 mls/hr IVPB Q4H-IV [facility]; Protocol Last Admin: 08/12/19 09:39 Dose: 100 mls/hr Documented by: Lisinopril (Prinivil) 20 mg PO DAILY [facility] Last Admin: 08/12/19 09:39 Dose: 20 mg Documented by: Gen: NAD at rest Heart: RRR Lung: right base rales Abd: soft, nontender Ext: no edema Laboratory Results - last 24 hr 08/12/19 08/12/19 06:40 06:40 WBC 7.3 RBC 3.18 L Hgb 10.7 L Hct 32.1 L MCV 101.1 H MCH 33.6 MCHC 33.3 RDW 13.1 Plt Count 342 MPV 8.9 Absolute Neuts (auto) 4.2 Neutrophils % 57.9 Lymphocytes % 26.3 Monocytes % 11.5 H Eosinophils % 3.8 Basophils % 0.5 Nucleated RBC % 0 Sodium 140 Potassium 3.8 Chloride 106 Carbon Dioxide 27 Anion Gap 7 L BUN 12.8 Creatinine 1.4 H Est GFR (CKD-EPI)AfAm 62.84 Est GFR (CKD-EPI)NonAf 54.22 Random Glucose 90 Calcium 8.8 Total Bilirubin 1.0 AST 45 H ALT 50 Alkaline Phosphatase 142 H Total Protein 6.9 Albumin 2.8 L A/P Hypertensive Urgency resolved Pneumonia Staph Bacteremia Pleurisy LV Systolic Dysfunction Cholelithiasis Anemia - pain control - continue antibiotics per ID - DVT prophylaxis - Supplemental O2 as needed Dr Fraga
--- NOTE | 2019-08-12 16:10 | PN ---
Progress Note, Physician Chief Complaint: RUQ pain History of Present Illness: This is a 59 year old man with no known pmh admitted with RUQ abdominal pain. During admission found to have staph bacteremia of unknown source. ECHO done 08/07/19 showed moderate global LV systolic dysfunction. - Current Medication List Current Medications: Active Medications Acetaminophen (Tylenol -) 1,000 mg PO Q6H PRN PRN Reason: PAIN LEVEL 1-5 Last Admin: 08/12/19 06:40 Dose: 1,000 mg Documented by: Carvedilol (Coreg -) 3.125 mg PO BID [facility] Last Admin: 08/12/19 09:39 Dose: 3.125 mg Documented by: Enoxaparin Sodium (Lovenox -) 40 mg SQ DAILY [facility] Last Admin: 08/12/19 09:39 Dose: 40 mg Documented by: Nafcillin Sodium 2 gm/ (Dextrose) 100 mls @ 100 mls/hr IVPB Q4H-IV [facility]; Protocol Last Admin: 08/12/19 13:59 Dose: 100 mls/hr Documented by: Lisinopril (Prinivil) 20 mg PO DAILY [facility] Last Admin: 08/12/19 09:39 Dose: 20 mg Documented by: - Objective Vital Signs: Vital Signs Temperature 98.5 F 08/12/19 14:35 Pulse Rate 69 08/12/19 14:35 Respiratory Rate 20 08/12/19 14:35 Blood Pressure 152/97 08/12/19 14:35 O2 Sat by Pulse Oximetry (%) 96 08/11/19 21:00 Constitutional: Yes: No Distress Eyes: Yes: WNL HENT: Yes: WNL Neck: Yes: WNL Cardiovascular: Yes: Regular Rate and Rhythm, S1, S2 Respiratory: Yes: CTA Bilaterally Gastrointestinal: Yes: Soft Edema: No Neurological: Yes: Alert, Oriented Labs: CBC, BMP 08/12/19 06:40 08/12/19 06:40 Assessment/Plan 59 year old man with no known pmh admitted with RUQ abdominal pain. During admission found to have staph bacteremia of unknown source. ECHO done 08/07/19 showed moderate global LV systolic dysfunction. Cardiomyopathy Could be secondary to undiagnosed chronic HTN or and LV function worse in the setting of infection When no longer infected, would benefit from an ischemia evaluation Continue low dose COREG and lisinopril Staph infection Source is unknown TTE did not reveal a vegetation A MARIBEL is reasonable, however I was unable to schedule a MARIBEL because his COVID test (negative on 08/05/2019) is not recent enough according to the endoscopy suite's policy. Please resend the COVID test.
--- NOTE | 2019-08-12 20:00 | PN ---
Progress Note, Physician History of Present Illness: AWAKE, ALERT IN BED TEMPS DOWN AFEBRILE NO C/O ABDOMINAL PAIN, N/V TOLERATING ANTIBIOTICS - Current Medication List Current Medications: Active Medications Acetaminophen (Tylenol -) 1,000 mg PO Q6H PRN PRN Reason: PAIN LEVEL 1-5 Last Admin: 08/12/19 06:40 Dose: 1,000 mg Documented by: Carvedilol (Coreg -) 3.125 mg PO BID [facility] Last Admin: 08/12/19 09:39 Dose: 3.125 mg Documented by: Enoxaparin Sodium (Lovenox -) 40 mg SQ DAILY [facility] Last Admin: 08/12/19 09:39 Dose: 40 mg Documented by: Nafcillin Sodium 2 gm/ (Dextrose) 100 mls @ 100 mls/hr IVPB Q4H-IV [facility]; Protocol Last Admin: 08/12/19 18:10 Dose: 100 mls/hr Documented by: Lisinopril (Prinivil) 20 mg PO DAILY [facility] Last Admin: 08/12/19 09:39 Dose: 20 mg Documented by: - Objective Vital Signs: Vital Signs Temperature 98.4 F 08/12/19 19:02 Pulse Rate 82 08/12/19 19:02 Respiratory Rate 20 08/12/19 14:35 Blood Pressure 139/87 08/12/19 19:02 O2 Sat by Pulse Oximetry (%) 96 08/11/19 21:00 Constitutional: Yes: No Distress Cardiovascular: Yes: Regular Rate and Rhythm, S1, S2 Respiratory: Yes: CTA Bilaterally Gastrointestinal: Yes: Normal Bowel Sounds, Soft Edema: No Labs: CBC, BMP 08/12/19 06:40 08/12/19 06:40 Assessment/Plan S AUREUS BACTEREMIA ?? SOURCE R/O ENDOCARDITIS CONTINUE NAFCILLIN REPEAT BC PENDING ?MARIBEL DISCUSSED WITH PMD
[2019-08-12] MEDS ORDERED: PT OWN MED DRAWER 7, Y5N ONE (21:15)
[2019-08-13] MEDS: NAFCILLIN - 2 GM in DEXTROSE 5%-WATER - 100 ML IVPB SCH ×4 (02:16→14:05)
[2019-08-13] MEDS: ACETAMINOPHEN 500 MG TABLET (FP) PO PRN ×2 (03:23→12:49)
[2019-08-13] MEDS ORDERED: PT OWN MED DRAWER 7, Y5N ONE ×2 (06:27→15:41)
[2019-08-13] MEDS: CARVEDILOL 3.125 MG TABLET (FP) PO SCH (09:19)
[2019-08-13] MEDS: ENOXAPARIN NA (PORCINE) 40 MG/0.4 ML DISP.SYRIN SQ SCH (09:19)
[2019-08-13] MEDS: LISINOPRIL 10 MG TABLET (FP) PO SCH (09:19)
[2019-08-13 09:20] LABS: BASO % 0.5 % (0-2.0); EOS % 4.2 % (0-4.5); HEMOGLOBIN 10.6 GM/dL (11.7-16.9); LYMPH % 35.2 % (8-40); MCH 32.3 pg (25.7-33.7); MCHC 32.2 g/dl (32.0-35.9); MEAN CELL VOLUME 100.3 fl (80-96); MEAN PLT VOLUME 8.7 fl (7.5-11.1); MONO % 11.7 % (3.8-10.2); NEUT % 48.4 % (42.8-82.8); PLATELET COUNT 381 K/MM3 (134-434); RBC 3.29 M/mm3 (4.00-5.60); RDW 13.3 % (11.9-15.9); WHITE BLOOD COUNT 6.5 K/mm3 (4.0-10.0)
[2019-08-13 10:00] LABS: POTASSIUM 3.8 mmol/L (3.5-5.1)
[2019-08-13 10:08] LABS: BILIRUBIN,TOTAL 0.8 mg/dL (0.2-1); CREATININE 1.2 mg/dL (0.55-1.3); TOT PROT 7.3 g/dl (6.4-8.2)
--- NOTE | 2019-08-13 11:17 | PN ---
Progress Note, Physician Chief Complaint: RUQ pain History of Present Illness: This is a 59 year old man with no known pmh admitted with RUQ abdominal pain. During admission found to have staph bacteremia of unknown source. ECHO done 08/07/19 showed moderate global LV systolic dysfunction. - Current Medication List Current Medications: Active Medications Acetaminophen (Tylenol -) 1,000 mg PO Q6H PRN PRN Reason: PAIN LEVEL 1-5 Last Admin: 08/13/19 03:23 Dose: 1,000 mg Documented by: Carvedilol (Coreg -) 3.125 mg PO BID [facility] Last Admin: 08/13/19 09:19 Dose: 3.125 mg Documented by: Enoxaparin Sodium (Lovenox -) 40 mg SQ DAILY [facility] Last Admin: 08/13/19 09:19 Dose: 40 mg Documented by: Nafcillin Sodium 2 gm/ (Dextrose) 100 mls @ 100 mls/hr IVPB Q4H-IV [facility]; Protocol Last Admin: 08/13/19 09:20 Dose: 100 mls/hr Documented by: Lisinopril (Prinivil) 20 mg PO DAILY [facility] Last Admin: 08/13/19 09:19 Dose: 20 mg Documented by: - Objective Vital Signs: Vital Signs Temperature 98.6 F 08/13/19 09:24 Pulse Rate 84 08/13/19 09:24 Respiratory Rate 20 08/13/19 09:24 Blood Pressure 167/104 H 08/13/19 09:24 O2 Sat by Pulse Oximetry (%) 97 08/13/19 08:47 Constitutional: Yes: No Distress Eyes: Yes: WNL HENT: Yes: WNL, Tonsillar Exudate Cardiovascular: Yes: Regular Rate and Rhythm, S1, S2 Respiratory: Yes: CTA Bilaterally Edema: No Neurological: Yes: Alert, Oriented Labs: CBC, BMP 08/13/19 08:09 08/13/19 08:09 Assessment/Plan 59 year old man with no known pmh admitted with RUQ abdominal pain. During admission found to have staph bacteremia of unknown source. ECHO done 08/07/19 showed moderate global LV systolic dysfunction. Cardiomyopathy Could be secondary to undiagnosed chronic HTN or and LV function worse in the setting of infection When no longer infected, would benefit from an ischemia evaluation Continue low dose COREG and lisinopril Staph infection Source is unknown TTE did not reveal a vegetation A MARIBEL is reasonable, however I was unable to schedule a MARIBEL because his COVID test (negative on 08/05/2019) is not recent enough according to the endoscopy suite's policy. Repeat COVID test is pending.
--- NOTE | 2019-08-13 11:43 | PN ---
Progress Note, Physician Chief Complaint: RUQ abdominal pain Nausea+ vomiting History of Present Illness: On no medications at home Symptoms started on 08/04/19 around noon with RUQ abd pain that was sharp stabbing radiating to right back with no vomiting. Pt went to [facility], Has CXR, CT abd+ EKG- no known results, pt was discharged. Pt continued to have RUQ pain, had Vomiting x 1, when daughter initiated EMS and pt was brought in to the hospital. Pt denies any pain associated with meals, denies any N/V/D currently. c/O mild SOB r/t pain. CTAP reviewed, RLL opacities, possible developing pneumonia or atelectasis 2/2 to shallow breaths. NAD Pain 0/10 today self ambulatory Denies any SOB On IV abx Seen by ID BC + [facility] Repeat BC negative Pt wants to do MARIBEL outpatient - Current Medication List Current Medications: Active Medications Acetaminophen (Tylenol -) 1,000 mg PO Q6H PRN PRN Reason: PAIN LEVEL 1-5 Last Admin: 08/13/19 03:23 Dose: 1,000 mg Documented by: Carvedilol (Coreg -) 3.125 mg PO BID [facility] Last Admin: 08/13/19 09:19 Dose: 3.125 mg Documented by: Enoxaparin Sodium (Lovenox -) 40 mg SQ DAILY [facility] Last Admin: 08/13/19 09:19 Dose: 40 mg Documented by: Nafcillin Sodium 2 gm/ (Dextrose) 100 mls @ 100 mls/hr IVPB Q4H-IV [facility]; Protocol Last Admin: 08/13/19 09:20 Dose: 100 mls/hr Documented by: Lisinopril (Prinivil) 20 mg PO DAILY [facility] Last Admin: 08/13/19 09:19 Dose: 20 mg Documented by: - Objective Vital Signs: Vital Signs Temperature 98.6 F 08/13/19 09:24 Pulse Rate 84 08/13/19 09:24 Respiratory Rate 20 08/13/19 09:24 Blood Pressure 167/104 H 08/13/19 09:24 O2 Sat by Pulse Oximetry (%) 97 08/13/19 08:47 Constitutional: Yes: Well Nourished, No Distress, Calm Cardiovascular: Yes: Regular Rate and Rhythm Respiratory: Yes: Regular, CTA Bilaterally Gastrointestinal: Yes: Normal Bowel Sounds, Soft Genitourinary: Yes: WNL Musculoskeletal: Yes: Muscle Weakness Extremities: Yes: WNL Edema: No Peripheral Pulses WNL: Yes Neurological: Yes: Alert, Oriented Psychiatric: Yes: Alert, Oriented Labs: CBC, BMP 08/13/19 08:09 08/13/19 08:09 Problem List - Problems (1) Abdominal pain, RUQ Assessment/Plan: -GI consult appreciated -HIDA scan negative -No GI etiology Problems reviewed: Yes Code(s): R10.11 - RIGHT UPPER QUADRANT PAIN (2) Pneumonia Assessment/Plan: -Pulmonary consult -IV abx -ID consult -Acetaminophen for fever -Afebrile Problems reviewed: Yes Code(s): J18.9 - PNEUMONIA, UNSPECIFIED ORGANISM (3) HTN (hypertension) Assessment/Plan: -Lisinopril 10 mg po daily -Monitor trend Problems reviewed: Yes Code(s): I10 - ESSENTIAL (PRIMARY) HYPERTENSION (4) Hypokalemia Assessment/Plan: -resolved Problems reviewed: Yes Code(s): E87.6 - HYPOKALEMIA (5) Bacteremia Assessment/Plan: -BC: Microbiology 08/10/19 08:50 Blood - Peripheral Venous Blood Culture - Preliminary NO GROWTH OBTAINED AFTER 72 HOURS, INCUBATION TO CONTINUE FOR 2 DAYS. 08/10/19 08:45 Blood - Peripheral Venous Blood Culture - Preliminary NO GROWTH OBTAINED AFTER 72 HOURS, INCUBATION TO CONTINUE FOR 2 DAYS. 08/12/19 06:40 Blood - Peripheral Venous Blood Culture - Preliminary NO GROWTH OBTAINED AFTER 24 HOURS, INCUBATION TO CONTINUE FOR 4 DAYS. 08/12/19 06:35 Blood - Peripheral Venous Blood Culture - Preliminary NO GROWTH OBTAINED AFTER 24 HOURS, INCUBATION TO CONTINUE FOR 4 DAYS. 08/08/19 07:20 Blood - Peripheral Venous Blood Culture - Final NO GROWTH AFTER 5 DAYS INCUBATION 08/08/19 07:30 Blood - Peripheral Venous Blood Culture - Final Staphylococcus Aureus 08/06/19 15:50 Blood - Peripheral Venous Blood Culture - Final NO GROWTH AFTER 5 DAYS INCUBATION 08/06/19 16:20 Blood - Peripheral Venous Blood Culture - Final Staphylococcus Aureus 08/05/19 23:10 Blood - Peripheral Venous Blood Culture - Final Staphylococcus Aureus 08/05/19 23:10 Blood - Peripheral Venous Blood Culture - Final Staphylococcus Latex Coag Pos 08/06/19 11:15 Urine For Antigen Detection Legionella Antigen - Final 08/06/19 11:15 Urine For Antigen Detection Streptococcus pneumoniae Antigen (M - Final -ID consult -IV cefazolin 2 gm Q8H For total of 5 weeks starting 08/08/19, finishing on 09/12/19 Problems reviewed: Yes Code(s): R78.81 - BACTEREMIA (6) Diastolic heart failure Assessment/Plan: -Echo reviewed -Cardiology eval appreciated -Pt will f/u with Cardiology o/p and schedule MARIBEL Problems reviewed: Yes Code(s): I50.30 - UNSPECIFIED DIASTOLIC (CONGESTIVE) HEART FAILURE Assessment/Plan See problem list
[2019-08-13] MEDS ORDERED: CARVEDILOL 6.25 MG TABLET (FP) PO SCH (11:46)
[2019-08-13] MEDS ORDERED: CARVEDILOL 3.125 MG TABLET (FP) PO ONE (12:00)
--- NOTE | 2019-08-13 12:45 | DS ---
Physical Examination Vital Signs: Vital Signs Temperature 98.6 F 08/13/19 09:24 Pulse Rate 84 08/13/19 09:24 Respiratory Rate 20 08/13/19 09:24 Blood Pressure 167/104 H 08/13/19 09:24 O2 Sat by Pulse Oximetry (%) 97 08/13/19 08:47 Findings/Remarks: 59 year old male with no past medical or cardiac hostory history who presented with right sided rib pain. He reported 10/10 right sided rib pain that started yesterday suddenly, he states he was sleeping and woke up with mid right sided pain with radiation to his back, took Tylenol which did not relieve his pain. He denied any recent trauma or muscle strain, denied chest pain or palpitations or prior cardiac history. Pain was described as worse with inspiration and on positional changes. He denied nausea, abdominal pain with meals, dizziness, headache, weakness, or urinary symptoms. Yesterday he was evaluated at [facility] ER , found to have isolated CK 709, CTA did not show rib fracture, AAA, or PE, and he was discharged home. He was also found to be found to be hypertensive with SBP 180s, was given IV labetalol and hydralazine. \ (1) Abdominal pain, RUQ Assessment/Plan: -GI consult appreciated -HIDA scan negative -No GI etiology Problems reviewed: Yes Code(s): R10.11 - RIGHT UPPER QUADRANT PAIN (2) Pneumonia Assessment/Plan: -Pulmonary consult -IV abx -ID consult -Acetaminophen for fever -Afebrile Problems reviewed: Yes Code(s): J18.9 - PNEUMONIA, UNSPECIFIED ORGANISM (3) HTN (hypertension) Assessment/Plan: -Lisinopril 10 mg po daily -Monitor trend Problems reviewed: Yes Code(s): I10 - ESSENTIAL (PRIMARY) HYPERTENSION (4) Hypokalemia Assessment/Plan: -resolved Problems reviewed: Yes Code(s): E87.6 - HYPOKALEMIA (5) Bacteremia Assessment/Plan: -BC: Microbiology 08/10/19 08:50 Blood - Peripheral Venous Blood Culture - Preliminary NO GROWTH OBTAINED AFTER 72 HOURS, INCUBATION TO CONTINUE FOR 2 DAYS. 08/10/19 08:45 Blood - Peripheral Venous Blood Culture - Preliminary NO GROWTH OBTAINED AFTER 72 HOURS, INCUBATION TO CONTINUE FOR 2 DAYS. 08/12/19 06:40 Blood - Peripheral Venous Blood Culture - Preliminary NO GROWTH OBTAINED AFTER 24 HOURS, INCUBATION TO CONTINUE FOR 4 DAYS. 08/12/19 06:35 Blood - Peripheral Venous Blood Culture - Preliminary NO GROWTH OBTAINED AFTER 24 HOURS, INCUBATION TO CONTINUE FOR 4 DAYS. 08/08/19 07:20 Blood - Peripheral Venous Blood Culture - Final NO GROWTH AFTER 5 DAYS INCUBATION 08/08/19 07:30 Blood - Peripheral Venous Blood Culture - Final Staphylococcus Aureus 08/06/19 15:50 Blood - Peripheral Venous Blood Culture - Final NO GROWTH AFTER 5 DAYS INCUBATION 08/06/19 16:20 Blood - Peripheral Venous Blood Culture - Final Staphylococcus Aureus 08/05/19 23:10 Blood - Peripheral Venous Blood Culture - Final Staphylococcus Aureus 08/05/19 23:10 Blood - Peripheral Venous Blood Culture - Final Staphylococcus Latex Coag Pos 08/06/19 11:15 Urine For Antigen Detection Legionella Antigen - Final 08/06/19 11:15 Urine For Antigen Detection Streptococcus pneumoniae Antigen (M - Final -ID consult -IV cefazolin 2 gm Q8H For total of 5 weeks starting 08/08/19, finishing on 09/12/19 Problems reviewed: Yes Code(s): R78.81 - BACTEREMIA (6) Diastolic heart failure Assessment/Plan: -Echo reviewed -Cardiology eval appreciated -Pt will f/u with Cardiology o/p and schedule MARIBEL Problems reviewed: Yes Code(s): I50.30 - UNSPECIFIED DIASTOLIC (CONGESTIVE) HEART FAILURE Assessment/Plan See problem list Constitutional: Yes: Well Nourished, No Distress, Calm Cardiovascular: Yes: Regular Rate and Rhythm Respiratory: Yes: Regular, CTA Bilaterally Gastrointestinal: Yes: Normal Bowel Sounds, Soft Renal/: Yes: WNL Musculoskeletal: Yes: WNL Extremities: Yes: WNL Edema: No Peripheral Pulses WNL: Yes Neurological: Yes: Alert, Oriented Psychiatric: Yes: Alert, Oriented Labs: CBC, BMP 08/13/19 08:09 08/13/19 08:09 Discharge Summary Problems reviewed: Yes Reason For Visit: R UPPER QUAD ABD PAIN Current Active Problems Abdominal pain, RUQ (Acute) Bacteremia (Acute) Biliary colic (Acute) Chest pain (Acute) HTN (hypertension) (Acute) Hypokalemia (Acute) Pneumonia (Acute) Rhabdomyolysis (Acute) Right sided abdominal pain (Acute) Condition: Stable - Instructions Diet, Activity, Other Instructions: Follow up with PCP within 4 weeks Follow up with Cardiology on 08/19/19 at 10 AM at [address] [place] [address] Referrals: Truong Garner MD [Staff Physician] - Jose Love MD [Primary Care Provider] - Disposition: VNS/HOME HEALTH CARE - Home Medications Comprehensive Discharge Medication List: Ambulatory Orders Acetaminophen [Tylenol .Extra-Strength -] 1 - 2 tab PO Q6H PRN #240 tablet 08/13/19 Carvedilol [Coreg -] 6.25 mg PO BID #60 tablet 08/13/19 Cefazolin [Ancef] 2 gm IV Q8H #99 vial 08/13/19 Lisinopril [Prinivil] 20 mg PO DAILY #30 tablet 08/13/19 Prescription Drug Monitoring Program (I-STOP) results: I-STOP reviewed and no issues identified
[2019-08-13 13:51] VITALS: BMI 24.9
[2019-08-13 14:29] VITALS: BP 159/94; PULSE 78; TEMP 98.5
== END 2019-08-13 16:07 | disposition home health service (06) | DRG 304 ==
LOC: SUPCPDRO 10:09 → JER 10:09 → JERBED 19:48 → J6S 08-06 02:07
PROVIDERS: ADMIT Internal Medicine; ATTEND Family Medicine
DX: I16.0 Hypertensive urgency (principal); J18.9 Pneumonia, unspecified organism; M62.82 Rhabdomyolysis; J98.11 Atelectasis; R78.81 Bacteremia; I42.8 Other cardiomyopathies; I50.30 Unspecified diastolic (congestive) heart failure; K80.50 Calculus of bile duct without cholangitis or cholecystitis without obstruction; D72.829 Elevated white blood cell count, unspecified; R10.11 Right upper quadrant pain; E87.6 Hypokalemia; I11.0 Hypertensive heart disease with heart failure
CPT/HCPCS: 36415; 36569; 71045-TC-FY; 71250-TC; 74177-TC; 76705-TC; 77001-TC-FY; 78226-TC; 80053; 81003; 82150; 82550; 82553; 83036; 83605; 83690; 84484; 85025; 86140; 87040; 87186; 87899; 93005; 93010; 93306-TC; 99285-25; A9537; C1751; G0480; J0131; Q9967; U0003